=== PATIENT | male | born 1970 | race Caucasian/White ===

== ENCOUNTER → 2017-11-24 17:40 | Outpatient (CLI) | payer OTHER, SELFPAY ==
--- NOTE | 2017-11-24 | DI.RAD.S_ITS ---
PROCEDURE: XR KNEE RT 3V INDICATIONS: BILAT KNEE PAIN, LEFT FOR COMPARISON TECHNIQUE: 3 views of the knee were acquired. COMPARISON: [facility], CR, XR KNEE LT 3V, 11/24/2017, 17:25. FINDINGS: Bones: No fractures or dislocations. No suspicious bony lesions. ACL repair is noted. Soft tissues: Moderate joint effusion. No suspicious soft tissue calcifications. IMPRESSION: Moderate effusion. Prior ACL repair. Dictated by: Iris Irby M.D. on 11/25/2017 at 11:57 Approved by: Iris Irby M.D. on 11/25/2017 at 11:59
--- NOTE | 2017-11-24 | DI.RAD.S_ITS ---
PROCEDURE: XR KNEE LT 3V INDICATIONS: BILAT KNEE PAIN TECHNIQUE: 3 views of the knee were acquired. COMPARISON: None. FINDINGS: Bones: No fractures or dislocations. No suspicious bony lesions. Minimal early degenerative medial compartment narrowing. Soft tissues: Moderate joint effusion. No suspicious soft tissue calcifications. IMPRESSION: Moderate effusion. No visualized acute fracture or dislocation. However, if clinical concern and/or pain persist, short interval imaging followup in 7-10 days is recommended, as occult injury cannot be definitively excluded. Dictated by: Iris Irby M.D. on 11/25/2017 at 12:55 Approved by: Iris Irby M.D. on 11/25/2017 at 12:56
== END ==
PROVIDERS: Visit Provider Nurse Practitioner Family
DX: M25.561 Pain in right knee (principal); M25.562 Pain in left knee; M25.462 Effusion, left knee; M25.461 Effusion, right knee
CPT/HCPCS: 73562

== ENCOUNTER 2018-03-25 11:43 | Emergency (ER) | payer OTHER, SELFPAY ==
[2018-03-25] VITALS (10 sets, daily range): BP systolic 112–135; BP diastolic 81–95; PULSE 74–86; RESP 14–19; TEMP 37.2; O2SAT 96–100; BMI 29.5
--- NOTE | 2018-03-25 11:55 | ED_ITS ---
HPI - Neuro Symptoms/Deficit General Chief Complaint: Neuro Symptoms/Deficit Stated Complaint: cognitive impairment Time Seen by Provider: 03/25/18 11:50 Source: patient and family Mode of arrival: wheelchair Limitations: no limitations History of Present Illness HPI Narrative: 47-year-old male with a history of hypertension and hyperlipidemia presents for evaluation of gradually worsening vague neurologic complaints. Over the past week or 2 the patient has had the development of increased difficulty with ambulation which has progressed to almost a shuffling gait. Additionally the patient has increasing difficulty with speaking though he clearly understands what he wants to say it often is difficult for him to clearly express himself. He denies any injury nor illness such as fever or chills nor nausea, vomiting or diarrhea. He has no obvious seizure activity. He denies any excessive alcohol use, change in medications or exposure to toxins. He denies focal neurologic findings such as numbness, weakness or tingling. He has been under a tremendous amount of stress recently Onset (ago): week(s) Timing confirmed by: spouse Location: speech and ataxia History of same: No Severity: moderate Quality: weak Relieving factors: none Exacerbating factors: none Context: gradual onset Associated symptoms: confusion Related Data Home Medications Medication Instructions Recorded Confirmed amlodipine 10 mg PO QPM 03/25/18 03/25/18 atorvastatin 10 mg PO QPM 03/25/18 03/25/18 cholecalciferol (vitamin D3) 4,000 unit PO QPM 03/25/18 03/25/18 [Vitamin D3] fexofenadine [Radha Allergy] 180 mg PO QPM 03/25/18 03/25/18 fluticasone furoate 2 spray INTRANASAL DAILY 03/25/18 03/25/18 lisinopril 40 mg PO QPM 03/25/18 03/25/18 lorazepam 1 mg PO PRN PRN 03/25/18 03/25/18 montelukast [Singulair] 10 mg PO QPM PRN 03/25/18 03/25/18 Allergies Allergy/AdvReac Type Severity Reaction Status Date / Time No Known Drug Allergies Allergy Verified 03/25/18 11:59 Review of Systems Constitutional Denies chills, Denies fever(s), Denies lethargy and Reports weakness Eyes Denies change in vision, Denies eye discharge, Denies irritation and Denies loss of vision ENT Ears, Nose, Mouth, and Throat: Denies change in voice, Denies neck pain and Denies sore throat Cardiovascular Denies chest pain, Denies irregular heart rhythm, Denies lightheadedness, Denies palpitations, Denies dyspnea, Denies dyspnea on exertion and Denies orthopnea Respiratory Denies cough, Denies dyspnea, Denies dyspnea on exertion and Denies wheezing Gastrointestinal Gastrointestinal: Denies abdominal pain, Denies change in bowel habits, Denies diarrhea, Denies nausea and Denies vomiting Genitourinary Denies hematuria, Denies flank pain, Denies urinary incontinence and Denies urinary urgency Musculoskeletal Reports abnormal gait and Denies neck pain Integumentary/Breasts Denies pruritus, Denies erythema, Denies rash and Denies wounds Neurologic Reports abnormal speech, Reports abnormal gait, Reports confusion, Denies loss of vision and Reports weakness Psychiatric Reports anxiety, Reports confusion, Reports depression, Denies homicidal ideation and Denies suicidal ideation Endocrine Denies palpitations Hematologic/Lymphatic Denies easy bruising Allergic/Immunologic Denies wheezing Exam Narrative Exam Narrative: GENERAL: 47-year-old male in obvious distress, difficult time ambulating through the department and pressured speech. GCS 15 HEAD: Atraumatic. Normocephalic. No temporal or scalp tenderness. EYES: Pupils equal round and reactive. Extraocular motions intact. No scleral icterus. No injection or drainage. ENT: Nose without bleeding, purulent drainage or septal hematoma. Throat without erythema, tonsillar hypertrophy or exudate. Uvula midline. Airway patent. NECK: Trachea midline. No JVD or lymphadenopathy. Supple, nontender, no meningeal signs. CARDIOVASCULAR: Regular rate and rhythm without murmurs, gallops, or rubs. RESPIRATORY: Clear to auscultation. Breath sounds equal bilaterally. No wheezes , rales, or rhonchi. GASTROINTESTINAL: Abdomen soft, non-tender, nondistended. No hepato-splenomegaly , or palpable masses. No guarding. EXTREMITIES: No clubbing, cyanosis, or edema. No joint tenderness, effusion, or edema noted. BACK: Nontender without deformity or crepitance. No flank tenderness. NEURO: AOx3.Speech is pressured SKIN: No rash or erythema. NIH Stroke Scale 1a. LOC: Patient is alert and keenly responsive (0) 1b. LOC Questions: Patient answers both LOC questions accurately (0) 1c. LOC Commands: Patient performs both tasks correctly (0) 2. Best Gaze: Normal (0) 3. Visual: No visual loss (0) 4. Facial palsy: Normal symmetrical movements (0) 5. Motor arm: No drift (0) 6. Motor leg: No drift (0) 7. Limb ataxia: Absent (0) 8. Sensory: Normal (0) 9. Best language: No aphasia; normal (0) 10. Dysarthria: Normal (0) 11. Extinction and inattention: No abnormality (0) NIHSS: 0 Initial Vital Signs Initial Vital Signs: Vital Signs Temperature 99.0 F 03/25/18 11:59 Pulse Rate 77 03/25/18 11:59 Respiratory Rate 15 03/25/18 11:59 Blood Pressure 135/95 H 03/25/18 11:59 Pulse Oximetry 96 03/25/18 11:59 Procedures Lumbar Puncture Time Out Performed: Yes Patient Position: upright Skin Prep: Povidone-Iodine 1% Local Anesthetic: lidocaine 1% Amount of anesthesia used (mL): 4 Spinal Needle Gauge: 22G Interspace Used: L4-L5 Fluid Initially Obtained: clear Complications: none Course Orders Ordered: ED Orders 03/25/18 11:50 EKG-12 Lead Stat 03/25/18 11:57 CT head/brain wo con Stat 03/25/18 14:25 CSF culture Stat Cell Count w Diff CSF Stat Glucose CSF Stat Meningitis Panel Stat Total Protein CSF Stat 03/25/18 14:35 Cell Count w Diff CSF Routine Discontinued Medications Sodium Chloride (Normal Saline 0.9%) 1,000 mls @ 150 mls/hr IV CONT ORTEGA Last Admin: 03/25/18 12:35 Dose: 150 mls/hr Thiamine HCl 100 mg/ Dextrose 51 mls @ 204 mls/hr IV NOW ONE Stop: 03/25/18 11:51 Last Infusion: 03/25/18 12:55 Dose: 0 mls/hr Admin: 03/25/18 12:35 Dose: 204 mls/hr Lorazepam (Ativan) 1 mg IV NOW ONE Stop: 03/25/18 12:51 Last Admin: 03/25/18 12:54 Dose: 1 mg Reevaluation(s) Reevaluation #1: Patient administered Ativan to calm his nerves prior to lumbar puncture and he feels much better after administration. His speech is more clear Consultations Consultation #1: Discussion with [place] [facility] neurology upon completion of workup to discuss possible etiologies and recommended neck steps. They are happy with our emergency department evaluation and make no emergent recommendations. They state he can safely be discharged and an outpatient neurology referral seems reasonable, and would likely include MRI and EEG. There is some question as to whether the patient's presentation is due to a partial seizure pattern given the impressive improvement after Ativan Consultation #2: Called to PCP to relay the findings of the case and encourage neurologic referral. She is thankful for the call and states she will begin working on referral today or tomorrow Vital Signs - 8 hr 03/25/18 12:30 03/25/18 13:00 03/25/18 13:30 Pulse Rate 82 74 80 Respiratory Rate 16 15 Blood Pressure [Left Arm] 128/86 117/86 119/88 Pulse Oximetry 100 98 97 03/25/18 14:00 03/25/18 14:30 03/25/18 15:00 Pulse Rate 86 76 77 Respiratory Rate 19 14 15 Blood Pressure [Left Arm] 126/83 121/83 112/81 Pulse Oximetry 100 97 96 03/25/18 15:30 03/25/18 16:00 03/25/18 16:30 Pulse Rate 76 83 78 Respiratory Rate 17 18 16 Blood Pressure [Left Arm] 118/83 118/83 125/85 Pulse Oximetry 98 96 97 MDM - Neuro Symptoms/Deficit Differential Diagnosis Likely delirium, subarachnoid hemorrhage, peripheral neuropathy, cerebrovascular accident and transient cerebral ischemia Medical Records Attestation: I reviewed the patient's medical records. Lab Data Attestation: I reviewed the patient's lab results. Result diagrams: 03/25/18 11:15 03/25/18 11:15 Lab Results 03/25/18 03/25/18 03/25/18 Range/Units 11:15 11:15 11:15 WBC 6.2 (4.5-11.0) X10^3/uL RBC 5.05 (4.5-5.9) X10^6/uL Hgb 14.5 (13.5-17.5) g/dL Hct 42.9 (41-53) % MCV 85.1 (80-100) fL MCH 28.7 (26-34) PG MCHC 33.8 (30-36) % RDW 12.8 (11.6-14.8) % Plt Count 215 (150-400) X10^3/uL Neut % (Auto) 60.7 (50-75) % Lymph % (Auto) 31.6 (25-40) % [place] % (Auto) 5.5 (3-14) % Eos % (Auto) 0.8 L (2-4) % Baso % (Auto) 1.4 (0-2) % Neut # (Auto) 3700 (8079-8536) /uL Lymph # (Auto) 1900 (5054-1386) /uL [place] # (Auto) 300 (0-900) /uL Eos # (Auto) 100 (0-450) /uL Baso # (Auto) 100 (0-100) /uL PT 12.6 (10.1-12.7) SECONDS INR 1.1 (0.9-1.3) APTT 35 (26.4-36.2) SECONDS Sodium 144 (137-145) mmol/L Potassium 4.1 (3.4-5.1) mmol/L Chloride 103 (98-107) mmol/L Carbon Dioxide 27 (22-32) mmol/L BUN 16 (9-20) mg/dL Creatinine 0.70 (0.66-1.25) mg/dL Estimated GFR > 60.0 (>60) mL/min BUN/Creatinine Ratio 22.9 H (6-22) Glucose 112 H (70-100) mg/dL Calcium 9.8 (8.4-10.2) mg/dL Total Bilirubin 0.7 (0.2-1.3) mg/dL AST 34 (17-59) IU/L ALT 45 (21-72) IU/L Alkaline Phosphatase 67 (38-126) U/L Ammonia (9-30) umol/L Troponin I < 0.012 (0.01-0.034) ng/mL Total Protein 8.4 H (6.3-8.2) g/dL Albumin 5.4 H (3.5-5.0) g/dL Globulin 3.0 (1.7-4.1) g/dL Albumin/Globulin Ratio 1.8 (1.0-2.8) CSF Tube Number CSF Volume CSF Appearance (Clear) CSF Color (Colorless) CSF WBC (0-5) MONO/uL CSF RBC RBC /uL CSF Mononuclear WBCs CSF Polynuclear WBCs CSF Glucose (40-70) mg/dL CSF Total Protein (12-60) mg/dL CSF C.neoform/gat PCR (Not Detect) CSF CMV DNA (PCR) (Not Detect) CSF Enterovirus (PCR) (Not Detect) CSF E. coli (PCR) (Not Detect) CSF H. influenzae (PCR) (Not Detect) CSF HSV I (PCR) (Not Detect) CSF HSV II (PCR) (Not Detect) CSF HHV 6 (PCR) (Not Detect) CSF L.monocytogenes PCR (Not Detect) CSF N. meningitidis PCR (Not Detect) CSF Parechovirus (PCR) (Not Detect) CSF S. agalactiae (PCR) (Not Detect) CSF S. pneumoniae (PCR) (Not Detect) CSF VZV (PCR) Ethyl Alcohol < 10 mg/dL 03/25/18 03/25/18 03/25/18 Range/Units 11:15 14:25 14:25 WBC (4.5-11.0) X10^3/uL RBC (4.5-5.9) X10^6/uL Hgb (13.5-17.5) g/dL Hct (41-53) % MCV (80-100) fL MCH (26-34) PG MCHC (30-36) % RDW (11.6-14.8) % Plt Count (150-400) X10^3/uL Neut % (Auto) (50-75) % Lymph % (Auto) (25-40) % [place] % (Auto) (3-14) % Eos % (Auto) (2-4) % Baso % (Auto) (0-2) % Neut # (Auto) (8006-6979) /uL Lymph # (Auto) (8722-2498) /uL [place] # (Auto) (0-900) /uL Eos # (Auto) (0-450) /uL Baso # (Auto) (0-100) /uL PT (10.1-12.7) SECONDS INR (0.9-1.3) APTT (26.4-36.2) SECONDS Sodium (137-145) mmol/L Potassium (3.4-5.1) mmol/L Chloride (98-107) mmol/L Carbon Dioxide (22-32) mmol/L BUN (9-20) mg/dL Creatinine (0.66-1.25) mg/dL Estimated GFR (>60) mL/min BUN/Creatinine Ratio (6-22) Glucose (70-100) mg/dL Calcium (8.4-10.2) mg/dL Total Bilirubin (0.2-1.3) mg/dL AST (17-59) IU/L ALT (21-72) IU/L Alkaline Phosphatase (38-126) U/L Ammonia 17.0 (9-30) umol/L Troponin I (0.01-0.034) ng/mL Total Protein (6.3-8.2) g/dL Albumin (3.5-5.0) g/dL Globulin (1.7-4.1) g/dL Albumin/Globulin Ratio (1.0-2.8) CSF Tube Number 2 CSF Volume 1.0 ml CSF Appearance Clear (Clear) CSF Color Colorless (Colorless) CSF WBC 0 (0-5) MONO/uL CSF RBC 0 RBC /uL CSF Mononuclear WBCs TNP CSF Polynuclear WBCs TNP CSF Glucose 65 (40-70) mg/dL CSF Total Protein 63 H (12-60) mg/dL CSF C.neoform/gat PCR Not detected (Not Detect) CSF CMV DNA (PCR) Not detected (Not Detect) CSF Enterovirus (PCR) Not detected (Not Detect) CSF E. coli (PCR) Not detected (Not Detect) CSF H. influenzae (PCR) Not detected (Not Detect) CSF HSV I (PCR) Not detected (Not Detect) CSF HSV II (PCR) Not detected (Not Detect) CSF HHV 6 (PCR) Not detected (Not Detect) CSF L.monocytogenes PCR Not detected (Not Detect) CSF N. meningitidis PCR Not detected (Not Detect) CSF Parechovirus (PCR) Not detected (Not Detect) CSF S. agalactiae (PCR) Not detected (Not Detect) CSF S. pneumoniae (PCR) Not detected (Not Detect) CSF VZV (PCR) Not detected Ethyl Alcohol mg/dL 03/25/18 Range/Units 14:35 WBC (4.5-11.0) X10^3/uL RBC (4.5-5.9) X10^6/uL Hgb (13.5-17.5) g/dL Hct (41-53) % MCV (80-100) fL MCH (26-34) PG MCHC (30-36) % RDW (11.6-14.8) % Plt Count (150-400) X10^3/uL Neut % (Auto) (50-75) % Lymph % (Auto) (25-40) % [place] % (Auto) (3-14) % Eos % (Auto) (2-4) % Baso % (Auto) (0-2) % Neut # (Auto) (1183-9125) /uL Lymph # (Auto) (5288-9336) /uL [place] # (Auto) (0-900) /uL Eos # (Auto) (0-450) /uL Baso # (Auto) (0-100) /uL PT (10.1-12.7) SECONDS INR (0.9-1.3) APTT (26.4-36.2) SECONDS Sodium (137-145) mmol/L Potassium (3.4-5.1) mmol/L Chloride (98-107) mmol/L Carbon Dioxide (22-32) mmol/L BUN (9-20) mg/dL Creatinine (0.66-1.25) mg/dL Estimated GFR (>60) mL/min BUN/Creatinine Ratio (6-22) Glucose (70-100) mg/dL Calcium (8.4-10.2) mg/dL Total Bilirubin (0.2-1.3) mg/dL AST (17-59) IU/L ALT (21-72) IU/L Alkaline Phosphatase (38-126) U/L Ammonia (9-30) umol/L Troponin I (0.01-0.034) ng/mL Total Protein (6.3-8.2) g/dL Albumin (3.5-5.0) g/dL Globulin (1.7-4.1) g/dL Albumin/Globulin Ratio (1.0-2.8) CSF Tube Number 4 CSF Volume 1.0 ml CSF Appearance Clear (Clear) CSF Color Colorless (Colorless) CSF WBC 0 (0-5) MONO/uL CSF RBC 2 RBC /uL CSF Mononuclear WBCs TNP CSF Polynuclear WBCs TNP CSF Glucose (40-70) mg/dL CSF Total Protein (12-60) mg/dL CSF C.neoform/gat PCR (Not Detect) CSF CMV DNA (PCR) (Not Detect) CSF Enterovirus (PCR) (Not Detect) CSF E. coli (PCR) (Not Detect) CSF H. influenzae (PCR) (Not Detect) CSF HSV I (PCR) (Not Detect) CSF HSV II (PCR) (Not Detect) CSF HHV 6 (PCR) (Not Detect) CSF L.monocytogenes PCR (Not Detect) CSF N. meningitidis PCR (Not Detect) CSF Parechovirus (PCR) (Not Detect) CSF S. agalactiae (PCR) (Not Detect) CSF S. pneumoniae (PCR) (Not Detect) CSF VZV (PCR) Ethyl Alcohol mg/dL Point of Care Testing Glucose POC 113 Urine Dip Bedside Urine Glucose Negative Bedside Urine Bilirubin - Negative Bedside Urine Ketone - Negative Urine Specific [place] 1.005 Bedside Urine Occult Blood - Negative Bedside Urine pH 8.0 Bedside Urine Protein - Negative Bedside Urine Urobilinogen - Negative Bedside Urine Nitrite - Negative Bedside Urine Leukocytes - Negative Esterase MDM Narrative Medical decision making narrative: Multiple etiologies for patient's symptoms considered including: [Multiple etiologies including atypical seizure pattern, toxic or metabolic encephalopathy, encephalitis, or neck he has or Korsakoff's, psychiatric break or other neuropsych etiology] Patient's symptoms improved or duration of stay with above-stated therapies. Findings and discharge diagnosis discussed with patient/family followed by verbalization of understanding Return precautions discussed with patient/family whom verbalize understanding. Critical Care Time Critical Care Time: Yes Total Critical Care Time: 45 Attestation: The high probability of a clinically significant, sudden or life threatening deterioration of the [neurologic] system(s) required my full and direct attention, intervention and personal management. The aggregate critical care time was [] minutes. This time is in addition to time spent performing reported procedures but includes the following: [x] Data Review and interpretation [x] Patient assessment and monitoring of vital signs [x] Documentation [x] Medication orders and management Discharge Plan Departure Patient Disposition: Home Clinical Impression: Ataxia Discharge Date/Time: 03/25/18 16:52 Interventions: ED Discharge Assessment Last Done: 03/25/18 16:50 Instructions: DI for Stuttering-Adult Activity Restrictions/Additional Instructions: *You have been diagnosed with [ ataxia, stuttering, possible partial seizure activity ] *What to do: *continue to take medications as directed *Follow up with your primary care provider in 2-3 days, call for an appointment. Let them know you were seen in the Emergency Department and that we ask that you be seen in follow up. We need to get you a referral to Neurology for workup for possible seizure activity *Return to ER if you should have any new, worsening or concerning symptoms Prescriptions: No Action atorvastatin 10 mg Tablet 10 mg PO QPM RF: 0 fexofenadine [Radha Allergy] 180 mg Tablet 180 mg PO QPM RF: 0 amlodipine 10 mg Tablet 10 mg PO QPM RF: 0 montelukast [Singulair] 10 mg Tablet 10 mg PO QPM PRN (Reason: Allergy Symptoms) RF: 0 lorazepam 1 mg Tablet 1 mg PO PRN PRN (Reason: Anxiety) RF: 0 lisinopril 40 mg Tablet 40 mg PO QPM RF: 0 fluticasone furoate 27.5 mcg/actuation [place],Suspension 2 spray INTRANASAL DAILY RF: 0 cholecalciferol (vitamin D3) [Vitamin D3] 2,000 unit Tablet 4,000 unit PO QPM RF: 0 Referrals: Teresita Castellano ARNP [Non-Staff] -
--- NOTE | 2018-03-25 11:57 | DI.CT.S_ITS ---
PROCEDURE: CT HEAD/BRAIN WO CON INDICATIONS: ataxia, trouble with speech TECHNIQUE: Noncontrast 4.5 mm thick angled axial sections acquired from the foramen magnum to the vertex, with coronal and sagittal reformats. For radiation dose reduction, the following was used: automated exposure control, adjustment of mA and/or kV according to patient size. COMPARISON: None. FINDINGS: Image quality: Excellent. CSF spaces: Basal cisterns are patent. No extra-axial fluid collections. Ventricles are normal in size and shape. Brain: No midline shift. No intracranial masses or hemorrhage. Zhu-white matter interface is normal. Skull and face: Calvarium and visualized facial bones are intact, without suspicious lesions. Sinuses: Visualized sinuses and mastoids are clear. IMPRESSION: Unremarkable head CT. No acute intracranial hemorrhage. Dictated by: Micah Dowling M.D. on 03/25/2018 at 11:10 Approved by: Micah Dowling M.D. on 03/25/2018 at 11:12
[2018-03-25 12:12] LABS: Add Manual Diff / Slide Review NO; Basophils Absolute Auto 100 /uL (0-100); Basophils Percent Auto 1.4 % (0-2); Eosinophils Absolute Auto 100 /uL (0-450); Eosinophils Percent Auto 0.8 % (2-4); Hematocrit 42.9 % (41-53); Hemoglobin 14.5 g/dL (13.5-17.5); Lymphocytes Absolute Auto 1900 /uL (1100-4500); Lymphocytes Percent Auto 31.6 % (25-40); Mean Corpuscular HGB Conc 33.8 % (30-36); Mean Corpuscular Hemoglobin 28.7 PG (26-34); Mean Corpuscular Volume 85.1 fL (80-100); Monocytes Absolute Auto 300 /uL (0-900); Monocytes Percent Auto 5.5 % (3-14); Neutrophils Absolute Auto 3700 /uL (1500-7000); Neutrophils Percent Auto 60.7 % (50-75); Platelet Count 215 X10^3/uL (150-400); Red Blood Cell Count 5.05 X10^6/uL (4.5-5.9); Red Cell Distribution Width 12.8 % (11.6-14.8); White Blood Cell Count 6.2 X10^3/uL (4.5-11.0)
[2018-03-25 12:19] LABS: INR 1.1 (0.9-1.3); Prothrombin Time 12.6 SECONDS (10.1-12.7)
[2018-03-25 12:21] LABS: PTT Partial Thromboplastin Tim 35 SECONDS (26.4-36.2)
[2018-03-25 12:23] LABS: Alanine Aminotransferase 45 IU/L (21-72); Albumin 5.4 g/dL (3.5-5.0); Albumin Globulin Ratio 1.8 (1.0-2.8); Alkaline Phosphatase 67 U/L (38-126); Aspartate Aminotransferase 34 IU/L (17-59); BUN Creatinine Ratio 22.9 (6-22); Bilirubin Total 0.7 mg/dL (0.2-1.3); Blood Urea Nitrogen 16 mg/dL (9-20); Calcium 9.8 mg/dL (8.4-10.2); Carbon Dioxide 27 mmol/L (22-32); Chloride 103 mmol/L (98-107); Estimated Glomerular Filt Rate > 60.0 mL/min (>60); Ethanol (ETOH) < 10 mg/dL; Glucose 112 mg/dL (70-100); HEMOLYSIS < 15 (0-50); Potassium 4.1 mmol/L (3.4-5.1); Sodium 144 mmol/L (137-145); Total Protein 8.4 g/dL (6.3-8.2)
[2018-03-25 12:35] LABS: Troponin I < 0.012 ng/mL (0.01-0.034)
[2018-03-25] MEDS: THIAMINE 100 MG in DEXTROSE 5 % IN WATER 50 ML 204 ML IV (12:35)
[2018-03-25] MEDS: SODIUM CHLORIDE 0.9% 1,000 ML 150 ML IV (12:35)
[2018-03-25] MEDS: LORazepam 2 MG/ML SYRINGE 1 MG IV (12:54)
[2018-03-25 14:43] LABS: Glucose CSF 65 mg/dL (40-70); Total Protein CSF 63 mg/dL (12-60)
[2018-03-25 14:51] LABS: CSF Tube Number 2; CSF Tube Volume 1.0 mL
[2018-03-25 14:52] LABS: Appearance CSF Clear (Clear); Color CSF Colorless (Colorless); Red Blood Cell CSF 0 RBC /uL; White Blood Cell CSF 0 MONO/uL (0-5)
[2018-03-25 14:52] LABS: CSF Tube Number 4
[2018-03-25 14:53] LABS: Appearance CSF Clear (Clear); CSF Tube Volume 1.0 mL; Color CSF Colorless (Colorless); Red Blood Cell CSF 2 RBC /uL; White Blood Cell CSF 0 MONO/uL (0-5)
--- NOTE | 2018-03-25 15:02 | PC.NURSE ---
Pt with increased tearful, unable to express himself upon arrival. Spouse asking if there was someone who could talk with pt and help calm him down. ok with calling insurance office manager to come talk to patient. Asked patient if he would like something for anxiety as well, pt shook his head accepting. Called Audie and audie agreed to come visit patient. Medicated with ativan at 1255. Shortly after, pt started to stare off and began to have shallow breathing. Oxygen sats decreased to 83% on RA. Was able to increase to 97% on RA with deep breathing after encouragement but would quickly drop down again. Placed O2 at 2L and spo2 increased to 100%. Pt appeared to calm down with the ativan and close his eyes.
[2018-03-25 16:00] LABS: Cryptococcus neoformans/gattii Not Detected (Not Detect); Enterovirus Not Detected (Not Detect); Escherichia coli K1 Not Detected (Not Detect); Haemophilus influenzae Not Detected (Not Detect); Herpes simplex virus 1 Not Detected (Not Detect); Herpes simplex virus 2 Not Detected (Not Detect); Human herpesvirus 6 Not Detected (Not Detect); Human parechovirus Not Detected (Not Detect); Listeria monocytogenes Not Detected (Not Detect); Neisseria meningitidis Not Detected (Not Detect); Streptococcus agalactiae Not Detected (Not Detect); Streptococcus pneumoniae Not Detected (Not Detect); Varicella Zoster Virus Not Detected
--- NOTE | 2018-03-25 16:47 | PC.NURSE ---
Pt reports being able to speak without difficulty. Ambulated around nurses station. Denied any leg weakness at the time.
== END 2018-03-25 16:52 | disposition home or self-care (01) ==
PROVIDERS: Emergency Provider Emergency Medicine
DX: R27.0 Ataxia, unspecified (principal)
CPT/HCPCS: 36591; 62270; 70450; 80053; 80320; 81003; 82140; 82945; 82962; 84157; 84484; 85025; 85610; 85730; 87070; 87205; 87798; 89051; 93005; 93010; 96361; 96374; 96375; 99285; 99291; J2060

== ENCOUNTER → 2018-11-06 10:22 | Outpatient (CLI) | payer OTHER, SELFPAY ==
--- NOTE | 2018-11-06 | DI.MRI.S_ITS ---
PROCEDURE: MR CERVICAL SPINE WO CON INDICATIONS: CARPAL TUNNEL,DDD OF C SPINE TECHNIQUE: Noncontrast sagittal T1 spin echo and T2 fast spin echo, sagittal STIR, foraminal oblique sagittal T2 fast spin echo, and axial gradient echo or T2 fast spin echo through the cervical spine. COMPARISON: None. FINDINGS: Image quality: Excellent. Alignment and Curvature: There is normal bony alignment. Bone Marrow: Marrow demonstrates normal overall signal. Spinal Cord: Visualized spinal cord has normal size and signal. No cerebellar tonsillar herniation. Paraspinous Soft Tissues: No paravertebral masses. Prevertebral soft tissues are normal in thickness. C2-C3: No canal stenosis. Mild right uncovertebral joint hypertrophy. Mild right foraminal narrowing. C3-C4: No canal stenosis. Mild bilateral facet hypertrophy. Mild bilateral foraminal narrowing. C4-C5: No canal stenosis. Left facet hypertrophy. Moderate left foraminal narrowing. C5-C6: No canal stenosis. Bilateral uncovertebral joint hypertrophy results in severe right foraminal narrowing and moderate left foraminal narrowing with indentation on the bilateral C6 nerve root sleeves in the foramina. C6-C7: A moderate broad-based left posterior disc protrusion narrows the left hemicord, indenting on the left hemicord and results in severe left foraminal narrowing. It impinges on the lateral recess and foramen, impinging on the left C7 nerve root. It measures 0.8 x 1.5 x 0.5 cm. C7-T1: Normal appearance. IMPRESSION: 1. At C6-C7, a moderate broad based left posterior disc protrusion indents on the left hemicord, impinging on the left penny-canal and left lateral recess and left foramen 2. At C5-C6, there is severe right foraminal narrowing and moderate left foraminal narrowing. 3. At C4-C5, there is moderate left foraminal narrowing. Dictated by: Anton Hogue M.D. on 11/09/2018 at 10:43 Approved by: Anton Hogue M.D. on 11/09/2018 at 10:55
== END ==
PROVIDERS: Visit Provider Family Medicine
DX: G56.00 Carpal tunnel syndrome, unspecified upper limb (principal); M50.223 Other cervical disc displacement at C6-C7 level; M48.02 Spinal stenosis, cervical region
CPT/HCPCS: 72141

== ENCOUNTER → 2019-05-11 12:02 | Outpatient (CLI) | payer OTHER, SELFPAY ==
[2019-05-11 13:06] LABS: Add Manual Diff / Slide Review NO; Basophils Absolute Auto 100 /uL (0-100); Basophils Percent Auto 1.4 % (0-2); Eosinophils Absolute Auto 100 /uL (0-450); Eosinophils Percent Auto 1.8 % (2-4); Hematocrit 41.7 % (41-53); Hemoglobin 14.4 g/dL (13.5-17.5); Lymphocytes Absolute Auto 2200 /uL (1100-4500); Mean Corpuscular HGB Conc 34.7 % (30-36); Mean Corpuscular Hemoglobin 29.3 PG (26-34); Mean Corpuscular Volume 84.6 fL (80-100); Monocytes Absolute Auto 300 /uL (0-900); Monocytes Percent Auto 5.3 % (3-14); Neutrophils Absolute Auto 3500 /uL (1500-7000); Neutrophils Percent Auto 56.5 % (50-75); Platelet Count 219 X10^3/uL (150-400); Red Blood Cell Count 4.92 X10^6/uL (4.5-5.9); Red Cell Distribution Width 13.3 % (11.6-14.8); White Blood Cell Count 6.2 X10^3/uL (4.5-11.0)
[2019-05-11 13:38] LABS: BUN Creatinine Ratio 15.7 (6-22); Blood Urea Nitrogen 11 mg/dL (9-20); Carbon Dioxide 28 mmol/L (22-32); Chloride 102 mmol/L (98-107); Estimated Glomerular Filt Rate > 60.0 mL/min (>60); Glucose 95 mg/dL (70-100); HEMOLYSIS < 15 (0-50); Potassium 4.2 mmol/L (3.4-5.1); Sodium 143 mmol/L (137-145)
== END ==
PROVIDERS: PCP Family Medicine; Referring Provider Orthopaedic Surgery Orthopaedic Surgery of the Spine; Visit Provider Orthopaedic Surgery Orthopaedic Surgery of the Spine
DX: Z01.812 Encounter for preprocedural laboratory examination (principal)
CPT/HCPCS: 36415; 80048; 85025

== ENCOUNTER 2019-05-25 07:15 | Day surgery (SDC) | payer OTHER, SELFPAY ==
[2019-05-19 13:00] VITALS: BMI 31.0
[2019-05-25] VITALS (21 sets, daily range): BP systolic 99–117; BP diastolic 52–76; PULSE 64–101; RESP 8–24; TEMP 36.2–36.9; O2SAT 91–98; BMI 31.0
--- NOTE | 2019-05-25 | DI.RAD.S_ITS ---
PROCEDURE: XR CERVICAL SPINE 2V OR 3V INDICATIONS: C5-6, C6-7 ACDF TECHNIQUE: 3 operative view(s) of the cervical spine were acquired. COMPARISON: None. FINDINGS: Preoperative images, including AP and lateral views, demonstrate ACDF at C5-C7 using anterior plate and screw fixation and interbody disc material. IMPRESSION: Operative imaging utilized during C5-C7 ACDF. Dictated by: Anton Hogue M.D. on 05/25/2019 at 11:53 Approved by: Anton Hogue M.D. on 05/25/2019 at 12:02
[2019-05-25] MEDS: LACTATED RINGERS 1,000 ML 42 ML IV (08:39)
--- NOTE | 2019-05-25 08:49 | PM.PREOP ---
Pre-operative Note Interval Note History & Physical reviewed/Exam performed by Physician: Yes Changes to H&P: No
[2019-05-25] MEDS: CEFAZOLIN 2 GM/100 ML FROZ.PIGGY IV ×2 (09:03→17:18)
--- NOTE | 2019-05-25 09:38 | SUR.OPER ---
Supine, head on gel donut. Arms padded with gel pads, tucked at sides, towel roll under shoulders. Safety belt at thigh. Legs uncrossed.
[2019-05-25] MEDS: BUPIVACAINE 0.25% W/ EPI 30 ML VIAL INJ (09:43)
--- NOTE | 2019-05-25 11:30 | PM.OP.1 ---
Operative Date/Time/Diagnoses Date of procedure: 05/25/19 Time of procedure: 08:53 Pre-op diagnosis: 1. C5-6, C6-7 spinal stenosis 2. C5-6, C6-7 spondylosis with radiculopathy Post-op diagnosis: same Procedure & Clinicians Procedure: 1. C5-6 C6-7 anterior cervical diskectomy and fusion 2. C5-6 C6-7 anterior interbody cage placement 3. C5-6 C6-7 anterior instrumentation with plate and screw placement in C5-C6 and C7 vertebrae 4. Utilization of microsurgical technique and operating microscope Same procedure as scheduled: Yes Indications: Patient has been having chronic neck pain and worsening cervical radiculopathy. Patient failed multiple conservative management with worsening pain weakness and numbness in her upper extremity. Patient has been having difficulty performing activity of daily living. After discussing risks benefits of treatment options, patient elected proceed with surgery. Surgeon: Franco Baez Chemical Cell Changer: Nazia Vega Click Yes if Unassisted: No Anesthesia Type: General Operative Notes Closure Type: primary Specimen(s): none sent Prosthetic devices, grafts, tissues, transplants, or devices: Globus extend plate, PEEK cages Applied: catheter Estimated Blood Loss (mL): 10 Blood products transfused: none Procedure in detail: Patient was seen in the preoperative area. Risks and benefits of the surgery was discussed with the patient. Operative consent was obtained and placed in the chart. Patient was then taken to the operative room. Prophylactic antibiotic was given less than 0.5 hr prior to skin incision. General anesthesia was administered. Patient was placed into a supine position on her radiolucent table. Bilateral shoulders were taped down to allow proper C-arm imaging. Anterior cervical area was prepped and draped in a sterile fashion. Time-out was performed at this time. Using lateral C-arm imaging, the level between C5 and C7 was identified and marked on patient's neck. A oblique incision from midline towards medial border of sternocleidomastoid muscle was made. The platysma muscle was incised in line with skin incision. Metzenbaum scissor was used to develop the plane between the medial border of sternocleidomastoid d and the strap muscles medially. The carotid sheath and its contents were identified and protected behind the hand-held retractor during the entire case. The plane between the carotid sheath and strap muscles was developed with Metzenbaum scissors. Dissection was made down to the level of the anterior cervical fascia. Longus colli muscle was incised on the anterior aspect of vertebral bodies bilaterally from C5-C7. Spinal needle was placed into the C5-6 disc space and confirmed with lateral C-arm imaging. Using microsurgical technique and operative microscope, anterior cervical diskectomy was performed at C5-6 and C6-7 level. This was done by removing the disc material, removing the anterior and posterior osteophytes posterior longitudinal ligaments along with performing bilateral foraminotomies at both levels. Patient was found to have severe central and foraminal stenosis at both levels. Patient's stenosis was fully decompressed after decompression was completed. After the diskectomy was completed, 2 anterior interbody cages were obtained. The cages were packed with globus via cell bone grafting material. One cage each along with the bone grafting material was then packed into the interbody spaces from C5-C7 with one cage into each interbody level. After the cages were placed, the anterior cervical plate was stabilized to the C5-C7 vertebrae using 2 screws at each each level. Total 6 screws were placed. After confirming placement of the hardware with AP and lateral C-arm imaging, the screws were locked into the plate using the locking mechanism and torque limiting screwdriver. After the hardware was placed and confirmed with AP and lateral C-arm imaging, the wound was irrigated with sterile normal saline. The platysma muscle and the subcutaneous tissue was closed with 2-0 Vicryl. The skin was closed with 4-0 Monocryl and Steri-Strips. Patient tolerated the procedure well. Patient was transferred recovery room in stable condition. There were no complications. Complications: none Post-operative Condition: stable Disposition: PACU Plan for aftercare: Admit to inpatient hospital
[2019-05-25] MEDS: LACTATED RINGERS 1,000 ML 120 ML IV (11:47)
[2019-05-25] MEDS: HYDROMORPHONE 2 MG INJ IV ×4 (11:54→12:31)
--- NOTE | 2019-05-25 12:01 | SUR.PHASEI ---
Rx given for c/o neck pain, IV flushed for patency, flows well.
--- NOTE | 2019-05-25 12:04 | SUR.PHASEI ---
States that pain level is unchanged; medicated
[2019-05-25] MEDS: fentaNYL 100 MCG/2 ML INJ IV ×2 (12:10→12:15)
[2019-05-25] MEDS: hydrOXYzine 50 MG/ML INJ 25 MG IM (12:17)
[2019-05-25] MEDS: LORazepam 2 MG/ML INJ 0.25 MG IV (12:28)
[2019-05-25] MEDS: LORazepam 2 MG/ML INJ (12:29)
[2019-05-25] MEDS: ACETAMINOPHEN 325 MG TABLET PO (12:42)
[2019-05-25] MEDS: OXYCODONE IR 5 MG TABLET PO (12:43)
--- NOTE | 2019-05-25 12:44 | SUR.PHASEI ---
became anxious, rx given per Dr. Niño. Patient now calm, HR lower, resting quietly with eyes closed
--- NOTE | 2019-05-25 13:10 | SUR.PHASEI ---
Sats range from 88% - 96%, arouses easily to voice, sats recover quickly. Neck drainage (pale shadow) has not increased from marking over 1/2 hour ago. Dozing, told him that his had called, response to conversation. Resp unlabored.
--- NOTE | 2019-05-25 13:43 | SUR.PHASEI ---
[id number] to room 205, bed down and locked, call light within reach. Clothing/bag to room. Pt dozing, responds readily to voice. When asked how he is doing, he shook his head yes, No non-verbal indicators of pain. VALARIE Kumar is covering lunch break for receiving RN, voice concern over resp rate 9-10. Coordinator present, agreed that patient was maintaining O2 sat and adequate resp rate. Encouraged them to leave patient on Continuous pulse-ox, RED HAT LINUX ENGINEER was available and offered to sit with the patient. VALARIE Kumar found this acceptable SCDs on. O2 at 3LNP. Skin warm and dry, resp even and regular. VSS.
--- NOTE | 2019-05-25 13:49 | SUR.PHASEI ---
1325 Maintaining sat and resp rate without prompting. Prepared to transfer. Pain well controlled without grimace or vocalization.
[2019-05-25] MEDS: SODIUM CHLORIDE 0.9% 1,000 ML 100 ML IV ×2 (14:21→23:23)
[2019-05-25] MEDS: GABAPENTIN 300 MG CAPSULE PO ×2 (14:44→20:11)
--- NOTE | 2019-05-25 14:50 | PC.NURSE ---
Received patient from the PACU, patient A/Ox3, drowsy, rr 8-10. Patient responsive. NS infusing at 100cc/hr. Admit completed. Patient given water, ice and IS. Call light in reach. PT in to see patient at this time.
--- NOTE | 2019-05-25 14:57 | PT-IP ANOTE ---
Pt arrived AC unit at 1335. PT order received. Attempted to eval PT at 1445pm and pt resting in bed who is AxO 4 but appeared to be very sleepy. Obtained social history but defer mobility assessment later this pm / tomorrow morning.
[2019-05-25] MEDS: ATORVASTATIN 10 MG TABLET PO (17:18)
--- NOTE | 2019-05-25 18:02 | PT.IIE ---
Current Diagnoses Other spondylosis with radiculopathy, cervical region (05/25/19) Spinal stenosis, cervical region (05/25/19) Surgery Performed Operation Date: 05/25/19 08:45 Actual Procedures p C5-6, C6-7 ACDF w/ anterior instrumentation(Not Applicable) - Franco Baez MD Surgical History (This Medical Record has been edited. Action required.) History of carpal tunnel release of both wrists (Acute) History of lumbar fusion (Acute 2014) History of vasectomy (Acute) Hx of appendectomy (Acute 1989) Hx of arthroscopy of right knee (Acute) Hx of repair of left rotator cuff (Acute 2005) Status post Mohs surgery (Acute) Medical History (This Medical Record has been edited. Action required.) Anxiety (Acute) Arthritis (Acute) Asthma (Acute) Depression (Acute) Hand fracture, right (Acute 1989) HLD (hyperlipidemia) (Acute) HTN (hypertension) (Acute) Numbness and tingling (Acute) Seasonal allergies (Acute) Physical Therapy Inpatient Evaluation/Re-Eval M1 PT/OT-IP Prior Functional Status Start: 05/25/19 17:47 Freq: NEEDED Status: Active Protocol: Document 05/25/19 17:47 (Rec: 05/25/19 18:02 [id number]) Medical Review Prior Functional Status Medical History Reviewed Yes Diet/Fluid Consistency Regular Communication no deficits noted. able to make needs known Mobility and Gait Pt was independent for all mobility Activities of Daily Living and IADL's independent for all ADLs and IADLs Prior Functional Level (Other details) Two EMGs indicated CTS in right but not in left. Symptoms noted in L arm. Numbness and tingling point middle and ring finger of L hand. Social History Household Members spouse Living Arrangements RV Number of Floors (Floors) One Floor Number of Stairs To Enter/Railing? 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 Pt had a fusion surgery on his back in 2014 who has been using log roll for OOB M2 PT-IP Current Condition Start: 05/25/19 17:47 Freq: NEEDED Status: Active Protocol: Document 05/25/19 17:47 (Rec: 05/25/19 18:02 [id number]) Physical Therapy Current Condition Current Condition Evaluation Date 05/25/19 Treatment Diagnosis C5-C7 ACDF, ongoing radicular symptoms in L hand Onset Date 05/25/19 Precautions Cervical Spine Precautions Soft Collar for Comfort,No Heavy Lifting,Log Roll Weight Bearing Status Weight Bearing Status Full Weight Bearing M3 PT-IP Subjective Start: 05/25/19 17:47 Freq: NEEDED Status: Active Protocol: Document 05/25/19 17:47 HH (Rec: 05/25/19 18:02 [id number]) Subjective Physical Therapy Visit Type Type Initial Evaluation Visit Start Time 17:10 Visit Stop Time 17:35 Total Visit Minutes 25 Notes Per RN, Pt is not groggy anymore and just finished dinner. Number of JUDGE CLERK Visits 0 Physical Therapy Visit Comments Patient Comments Im more awake now and wanting to move. Patient Goals To return home with his . Therapy Pain Assessment Pain Present Pain Present Denied Pain M4 PT-IP Mobility and Gait Start: 05/25/19 17:47 Freq: NEEDED Status: Active Protocol: Document 05/25/19 17:47 (Rec: 05/25/19 18:02 [id number]) PT-Bed Mobility Assessment Rolling Type of Rolling Roll to Left Level of Assist Standby Assistance Supine to Sit Supine to Sit Standby Assistance Scooting Scooting to Edge of Bed Standby Assistance PT-Transfer Assessment Sit to and From Stand Sit to and from Stand Standby Assistance,Use of Upper Extremities Equipment Transfer Assistive Device None,Gait Belt Orthotic/Prosthetic Devices or Brace: No Transfers Transfer Destination Bed,Chair Transfer Technique Stand Step Pivot Transfer Ability Level of Assist Standby Assistance,Use of Upper Extremities Comments Mobility Comments Pt was in elevated HOB upon PT arrival. Denies any discomfort and was able to swallow for his food. Pt agreeable to mobilize with PT. He completed log roll to L followed by sidelying push up to sit SBA with bed rail who stated he has similar feature at home. Pt then scooted to EOB and proceeded to stand up without AD. He then amb to sink counter for collar fitting. Pt then amb with PT to nursing station who was able to hold on to IV pole and navigate SBA. Pt appeared to be very steady and no signs of LOB. He then returned to bedside chair safely with proper hand placements. Call light placed within reach. Gait Assessment Gait Gait Assistance Required: Standby Assistance Distance (Feet) 220 Able to Maintain Weight Bearing Status Yes During Gait Assistive Devices Assistive Device None,Gait Belt Orthotic/Prosthetic Devices or Brace: No Gait Deviations General Gait Pattern Within Normal Limits Factors Limiting Gait Function Factors Limiting Gait Function Decreased Activity Tolerance Comments Gait Comments see mobility comments. Stair Climbing Assessment Evaluation Level of Assist On Stairs Standby Assistance Devices Stair Climbing Assistive Devices Left Railing Technique/Endurance Stair Climbing Direction Ascend and Descend Stair Climbing Technique Step Over Step,Step to Step Number of Steps Climbed 3 Query Text: Stair Climbing Set # Repetitions (reps) 2 Comments Stair Climbing Comments step over pattern for descend and step to for descend. Appeared safe and steady. PT-Balance Assessment Sitting Balance and Reactions Static Sitting Balance Ability Normal Dynamic Sitting Balance Ability Normal Standing Balance and Reactions Static Standing Balance Ability Normal Dynamic Standing Balance Ability Normal M5 PT-IP Objective Assessments Start: 05/25/19 17:47 Freq: NEEDED Status: Active Protocol: Document 05/25/19 17:47 (Rec: 05/25/19 18:02 [id number]) Orientation Orientation/Cognition Level of Alertness Alert Orientation Name,Age,Birthday,Month,Date, Year,Day of Week,Place, Situation Language Function Ability No Deficits Noted Safety Awareness Understands Safety Issues Memory Description No Deficits Noted Gross Range of Motion Upper Extremity ROM Assessment Within Functional Limits Lower Extremity ROM Assessment Within Functional Limits Strength Upper Extremity Strength Assessment Within Functional Limits Lower Extremity Strength Assessment Within Functional Limits Coordination Assessment Gross Coordination Gross Coordination WNL Sensation Assessment Sensation Gross Sensation Left UE Impaired Light Touch Impaired Proprioception (Position) Impaired Sensation Description Numbness Comments Sensation Comments Pt reports numbness from 2nd to 4th digit but denied tingling sensation. Muscle Tone Muscle Tone WNL Yes M6 PT-IP Treatment Start: 05/25/19 17:47 Freq: NEEDED Status: Active Protocol: Document 05/25/19 17:47 (Rec: 05/25/19 18:02 [id number]) Physical Therapy Treatment Education Education Provided Precautions,Post-Op Packet, Safety Brace Education Donning,Painter,Patient M7 PT-IP Assessment and Plan Start: 05/25/19 17:47 Freq: NEEDED Status: Active Protocol: Document 05/25/19 17:47 (Rec: 05/25/19 18:02 [id number]) PT Summary Assessment and Plan Potential Rehabilitation Potential Excellent Status of Condition at Evaluation Stable Summary Impairments Pain,Sensation,Activity Tolerance Progress Towards Goals Safe For Discharge Assessment Summary This is a low complexity evaluation for this 48 yo male s/p POD #0 C5-C7 ACDF. 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 But pt does has ongoing numbness, tingling sensation for his 2-4th digits. CLOF= Pt cont to have numbness at his 2-4 th digits but no numbness reported. He was able to mobilize with this PT without AD and no signs of LOB/ c/o discomfort. Pt also completed stair climbing with L rail SBA . He is currently safely to go home with 's assistance as needed. Frequency of Treatment Frequency Of Treatment Discharge Recommendations To Nursing Amount of Assist Needed Standby Assistance Discharge Recommendations PT Discharge Recommendations Home with Assistance Transportation Needs at Discharge Private Vehicle
--- NOTE | 2019-05-25 18:50 | PC.NURSE ---
Kylie shift note: Patient awake, alert, and pleasant. Up out of bed with PT, ambulated in hallway independently. Soft cervical collar in place, educated regarding precautions, verbalized understanding. SCDs in place while in bed, IS while awake. Calls appropriately for staff assistance. On RA, 95%. Voiding, QS
[2019-05-25] MEDS: OXYCODONE IR 10 MG TABLET PO (20:11)
[2019-05-25] MEDS: DOCUSATE 100 MG CAPSULE PO (20:11)
[2019-05-25] MEDS: SENNOSIDES 8.6 MG TABLET 17.2 MG PO (20:11)
[2019-05-25] MEDS: LORazepam 1 MG TABLET PO (20:11)
--- NOTE | 2019-05-25 23:39 | PC.NURSE ---
Addendum entered by Nilda Willingham R.N. 05/26/19 02:38: Complains of 8/10 incisional pain; medicated with Oxycodone and ice pack applied. Original Note: Patient is alert and oriented. Breath sounds CTA with RA sat of 93%. Wearing soft cervical collar. Dressing to anterior neck is intact with shadow drainage at upper edge. States sore throat/sore to swallow but no choking. Pain is 4/10 but tolerable and declines pain meds and/or ice pack. Has chronic numbness in fingers of left hand and pain in forearm; overall weakness in left UE. Denies nausea. BT hypoactive and has not yet passed flatus. Voiding per urinal; denies dysuria, frequency or urgency. Up independently walking zelaya and is steady on feet. Fall risk score is low. Calf SCD's placed as per MD order.
[2019-05-26] MEDS: CEFAZOLIN 2 GM/100 ML FROZ.PIGGY IV (00:46)
[2019-05-26] MEDS: OXYCODONE IR 10 MG TABLET PO ×2 (02:37→08:15)
[2019-05-26 04:41] VITALS: BP 113/60; PULSE 79; RESP 16; TEMP 37.1; O2SAT 94
[2019-05-26 05:58] LABS: Hematocrit 34.1 % (41-53); Hemoglobin 11.7 g/dL (13.5-17.5)
[2019-05-26 07:35] VITALS: BP 106/67; PULSE 83; RESP 15; TEMP 37.4; O2SAT 94
--- NOTE | 2019-05-26 07:50 | PC.NURSE ---
Addendum entered by Michaelle Gayle R.N. 05/26/19 12:57: Discharge education given to patient, patient verbalizes understanding of s/s of infection and stroke, given instructions on wound care, follow up appointment and pain management. Patient discharged via wheelchair. Original Note: Patient resting in bed this AM. A/Ox4. Soft neck collar on, neck dsg is CDI, patient confirms numbness in LUE, tingling and pain still in left forearm. Pulses equal bilaterally. Lung sounds clear, bowel tones are active x4. Abdomen is soft and non-tender. Calf SCD's on bilaterally, removed for patient's independent walk in the zelaya. Patient denies dizziness, lightheadedness, increased SOB or WOB during activity.
[2019-05-26] MEDS: DOCUSATE 100 MG CAPSULE PO (08:09)
[2019-05-26] MEDS: ESCITALOPRAM 10 MG TABLET 15 MG PO (08:09)
[2019-05-26] MEDS: lisinopriL 20 MG TABLET 40 MG PO (08:12)
[2019-05-26] MEDS: GABAPENTIN 300 MG CAPSULE PO (08:12)
[2019-05-26] MEDS: LORATADINE 10 MG TABLET PO (08:13)
--- NOTE | 2019-05-26 08:48 | OT.IP.TRT ---
Current Diagnoses Other spondylosis with radiculopathy, cervical region (05/25/19) Spinal stenosis, cervical region (05/25/19) Surgery Performed Operation Date: 05/25/19 08:45 Actual Procedures p C5-6, C6-7 ACDF w/ anterior instrumentation(Not Applicable) - Franco Baez MD Occupational Therapy Treatment Note M3 OT- IP Subjective and Pain Start: 05/26/19 08:41 Freq: Status: Active Protocol: Document 05/26/19 08:42 [facility] (Rec: 05/26/19 08:48 [facility] [id number]) OT- Subjective Occupational Therapy Visit Type Type Treatment Note Visit Start Time 08:34 Visit Stop Time 08:42 Total Visit Minutes 8 Occupational Therapy Visit Comments Patient Comments Pt just finishing eating breakfast and willing to do OT eval. Patient/Caregiver Goals To go home today. OT Pain Assessment Pain When Pain Assessed At Rest Pain Present Pain Present Denied Pain M4 OT- IP ADL's Start: 05/26/19 08:41 Freq: Status: Active Protocol: Document 05/26/19 08:42 [facility] (Rec: 05/26/19 08:48 [facility] [id number]) OT [id number] General Evaluation Self-Feeding Ability Independent Comments OT Self-Feeding Comments Educated on informational sheet on swallowing after cervical sx, to eat softer food, cold foods, eat upright, and make sure to chew food up thoroughly before swallowing. OT ADL-Oral Care Comments Oral Care Comments Educated to spit into a cup or bend at his hips and lean forwards to the sink to spit. OT ADL-Dressing Comments OT Dressing Comments Educated to be mindful of cervical precautions when dressing. OT ADL-Bathing Comments OT Bathing Comments Educated to use showerhead to shower below his neck. Pt wanting to shower at home. M9 OT- IP Assessment and Plan Start: 05/26/19 08:41 Freq: Status: Active Protocol: Document 05/26/19 08:42 [facility] (Rec: 05/26/19 08:48 [facility] [id number]) OT Summary Assessment and Plan Potential Rehabilitation Potential Excellent Analytic Complexity at Evaluation Low Summary Progress Towards Goals Progressing Toward Goals Assessment Summary Pt low complexity and independently moving in the room and has been educated by OT for cervical precautions for ADl needs. Pt to go home today and has supportive to assist with needs. Goals Patient/Caregiver Education Goal Demonstrate Energy Conservation and Pacing, Caregiver Independent Assisting Patient Days to Meet Goals 1 Frequency of Treatment Frequency Of Treatment Once a Day Treatment Plan OT Treatment Plan Patient/Family Education, Discharge Planning Discharge Recommendations OT Discharge Recommendations Home with Assistance Transportation Needs at Discharge Private Vehicle
--- NOTE | 2019-05-26 11:02 | P.DS_ITS ---
History of Present Illness History of Present Illness Date Patient Seen: 05/26/19 Time Patient Seen: 11:02 Chief complaint: Cervical Fusion Anterior *OPB* Narrative: Patient was admitted yesterday for scheduled ACDF Discharge Providers Provider Discharge Date: 05/26/19 Primary care physician: Teresita Winslow MD Consults: 05/25/19 14:00 Consult to Occupational Therapy Evaluate & Treat Comment: Physician Instructions: Evaluate and treat Consult to Physical Therapy Evaluate & Treat Comment: Physician Instructions: Evaluate and Treat Discharge provider: Jhonatan Davies MD Summary Hospital Course Discharge Diagnosis: s/p ACDF Hospital Course: Patient underwent ACDF yesterday and this was well tolerated. Pain is controlled and patient is swallowing without difficulty Status at Discharge Cognitive/behavioral status at discharge: oriented Functional status at discharge: independent ambulation Overall status at discharge: patient is progressing back to baseline Time Spent with Patient Time spent discussing smoking cessation with patient: more than 10 minutes Exam Vital Signs (past 8 hours): - 05/26/19 04:41 05/26/19 07:35 Temperature 98.7 F 99.4 F Pulse Rate 79 83 Respiratory Rate 16 15 Blood Pressure 113/60 106/67 Pulse Oximetry 94 94 Oxygen Delivery Method Room Air Oxygen Flow Rate 0 Objective Labs Result Diagrams: 05/26/19 05:45 Labs: Laboratory Results - last 24 hr 05/26/19 05:45 Hgb 11.7 L Hct 34.1 L Discharge Plan Discharge Plan Patient Disposition: Home Discharge Med Rec/Prescriptions Prescriptions: New docusate sodium [DOK] 100 mg Capsule 100 mg PO BID Qty: 28 RF: 0 hydroxyzine pamoate 25 mg Capsule 25 mg PO Q4HR PRN (Reason: Nausea And Vomiting) Qty: 42 RF: 0 ondansetron HCl (PF) 4 mg/2 mL Solution 4 mg IV Q6HR PRN (Reason: Nausea And Vomiting) Qty: 12 RF: 0 oxycodone 10 mg Tablet 10 mg PO Q3HR PRN (Reason: Pain, Severe (7-10)) Qty: 48 RF: 0 Continued fexofenadine [Radha Allergy] 180 mg tablet 180 mg PO DAILY RF: 0 lorazepam 1 mg tablet 1 mg PO BEDTIME RF: 0 lisinopril 40 mg tablet 40 mg PO DAILY RF: 0 fluticasone propionate [Flonase Allergy Relief] 50 mcg/actuation spray, suspension 2 spray NASAL DAILY RF: 0 atorvastatin 10 mg Tablet 10 mg PO QPM RF: 0 amlodipine 10 mg Tablet 10 mg PO QPM RF: 0 gabapentin 300 mg Capsule 300 mg PO TID RF: 0 escitalopram oxalate [Lexapro] 10 mg Tablet 15 mg PO DAILY RF: 0 Follow up/Referrals: Franco Baez MD [Physician] - 2 Weeks Discharge Orders: Discharge (Order); Ordered 05/26/19 Ordered By: Jhonatan Davies Provider Discharge Instructions Diet: Diet as Tolerated Cold/Heat Therapy: Ice as needed to control swelling Skin/Wound/Dressing Care Report to your healthcare provider any signs of infection, such as:: chills, fever, night sweats and increased pain Dressing: OK to remove dressing in 5 days Visit Report/Discharge Packet Instructions: DI for Anterior Cervical Discectomy and Fusion Stand Alone Forms: Surgery Discharge Print Language: Turkmen Discharge Data Primary Care Provider: Teresita Winslow Attending Provider: Franco Baez Quality VTE Deep Vein Thrombosis/Pulmonary Embolism Present on Admission: No
--- NOTE | 2019-05-26 11:24 | CM.DANOTE ---
DCP Assessment: EMR reviewed: Patient is a 48 yr old male who was admitted for Cervical fusion surgery preformed by Dr. Baez. CM/RN met with patient at the bedside and explain role. Patient was alert and oriented x3 at time of visit. Patient currently lives in an RN with his Tawana. Patient was walking around room during visit unassisted and stated his pain is well under control. Patient is independent with all ADL's and drives [place]. PT and OT evaluation stated patient is good to go home with assistance. Patients will be picking up patient and bringing him home when he is medically stable. I: [place] and self pay Plan: D/C home with family when medically stable. No identified D/c planning needs are noted. CM department will follow to assist with any new D/C planning needs as they arise. Eladia Pereyra RN Discharge Planning/Care Management CM Discharge Assessment Start: 05/26/19 11:23 Freq: Status: Active Protocol: Document 05/26/19 11:23 HS (Rec: 05/26/19 11:24 [id number]) Discharge Planning Assessment Assigned Referral Management Liaison Eladia Pereyra RN DPOA/Assigned Designee Name Tawana Sharpe () Contact Information [phone] Advance Directives? No History Provided By Patient,Medical Record Has Patient been admitted in last 30 No days? Prior Living Arrangements RV Household Members spouse Type of transporation used prior to Drives own vehicle admit Independent with ADL's Yes Is patient alert and oriented? Yes Caregiver for Another No Barriers to Discharge No Discharge Plan Home Referrals Initiated None needed Whiteboard Updated in Patient Room with Yes name and ext. 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 Required No Height 175.26 cm Weight 95.254 kg Body Mass Index (BMI) 31.0 Hearing Ability Normal Visual Impairment No Limitations Visual Assist None Dentition Type Teeth, Natural Present Barriers to Learning None Hx Anesthesia Reactions Yes: Hard time waking up Hx Family Anesthesia Reaction No Hx Malignant Hyperthermia No Hx Blood Transfusions No Anesthesia Review Requested No alcohol intake current alcohol intake frequency holidays/special occasions only Smoking Status Never smoker Substance Use Type does not use Pain Present Pain Reported Musculoskeletal Symptoms Abnormal Gait,Back Pain, Difficulty Walking,Limited Range of Motion,Neck Pain, Numbness,Radiating Pain into Limb,Tingling History of Falling (Recent or History of No ) Patient is completely paralyzed or No completely immobile Mental Status Oriented to own ability Is patient on oxygen? No Does patient have LEVI/SOB No Hx Sleep Apnea No Currently Taking a Beta Vish No Can You Climb a Flight of Stairs Without Yes SOB Hx Chest Pain No Hx SOB No Hx Syncope or Dizziness No Anti-Coagulant Therapy No Has a Computer Software Engineer No Cardiac Testing No Hx Pacemaker/ICD No Pacemaker Rep Required? No Cardiac Clearance Received Not Applicable Diet Type At Home Regular dysphagia No Urinary Catheter Present No Hx Urinary Self Catheterization No Diabetes No Hx Drug Resistant Organism No Presence of External or Internal Medical Yes: Rt hand, lumbar hardware, Devices right knee screw Burger exposure No Have you had any close contact with No someone diagnosed with NOVEL CORONAVIRUS ? Have you traveled outside the [facility] in the last 30 days? Marital Status Lives With spouse Prior Living Arrangements RV Support System Family,Friend(s),Spouse Does the Patient Have Assistance After Yes Surgery Patient Discharge Plan Description Return Home Comment Pt advised overnight length of stay per surgeon Feels Safe in Current Environment Yes Been Physically Hurt or Threatened By a No Person in Current Environment Do you have thoughts of harming yourself None or others? Are you currently considering suicide? No Do you have a plan to hurt yourself or No Plan others? Do You Have Any Spiritual Beliefs That No May Affect Your HC Choices? Do You Have Any Cultural Practices That No May Affect Your HC Choices? Comment Nondenominational Who Can We Speak to About Patient's Care Family, friends Identifying Code for Release of Patient Decllines to issue Information Health Care Proxy/Next of Kin Tawana () Health Care Proxy Emergency Contact Name Tawana () Emergency Contact Advance Directives? No Power of Refractory Worker No PAC Instructions Do not shave/clip surgical site,Durable medical equipment ,Medications to take/avoid, Nasal antibiotic,No ETOH/ petroleum product on skin DOS, NPO,Pre-surgical wash,Sturdy shoes/comfortable clothes,Do not bring valuables and remove jewelry
--- NOTE | 2019-05-26 11:36 | PM.PN.1 ---
Exam Vital Signs (past 8 hours): - 05/26/19 04:41 05/26/19 07:35 Temperature 98.7 F 99.4 F Pulse Rate 79 83 Respiratory Rate 16 15 Blood Pressure 113/60 106/67 Pulse Oximetry 94 94 Oxygen Delivery Method Room Air Oxygen Flow Rate 0 Objective Labs Result Diagrams: 05/26/19 05:45 Labs: Laboratory Results - last 24 hr 05/26/19 05:45 Hgb 11.7 L Hct 34.1 L Assessment & Plan Assessment & Plan narrative: Patient doing well POD#1 s/p ACDF/ On exam, dressing clean and dry Neuro intact on exam. Cleared by PT to d/c home D/c home today Quality VTE Deep Vein Thrombosis/Pulmonary Embolism Present on Admission: No
== END 2019-05-26 12:45 | disposition home or self-care (01) ==
LOC: OR 07:16 → AC 07:18
PROVIDERS: PCP Family Medicine; Referring Provider Orthopaedic Surgery Orthopaedic Surgery of the Spine; Visit Provider Orthopaedic Surgery Orthopaedic Surgery of the Spine
PROC: (CPT 22551; principal; 2019-05-25 08:45)
DX: M48.02 Spinal stenosis, cervical region (principal); M47.22 Other spondylosis with radiculopathy, cervical region; F41.9 Anxiety disorder, unspecified; J45.909 Unspecified asthma, uncomplicated; E78.5 Hyperlipidemia, unspecified
CPT/HCPCS: 22551; 22552; 22853 ×2; 36415; 72040; 76000; 85014; 85018; 97161; 97530; 97535; C1776; J0330; J0461; J0690; J1100; J1170; J2060; J2250; J2405; J2704; J3010; J3410

== ENCOUNTER → 2020-03-12 08:57 | Outpatient (CLI) | payer OTHER, SELFPAY ==
[2019-05-25 07:39] VITALS: BMI 31.0
--- NOTE | 2020-03-12 | DI.RAD.S_ITS ---
PROCEDURE: XR KNEE RT 3V INDICATIONS: RIGHT KNEE PAIN TECHNIQUE: 3 views of the knee were acquired. COMPARISON: [facility], , XR KNEE RT 3V, 11/24/2017, 17:25. FINDINGS: Bones: No acute fractures or dislocations. No suspicious bony lesions. Postsurgical changes are again seen from prior anterior cruciate ligament reconstruction. Soft tissues: No joint effusion. No suspicious soft tissue calcifications. IMPRESSION: No acute osseous abnormality. Postsurgical changes from prior anterior cruciate ligament reconstruction. If the symptoms persist with conservative management, consider cross sectional imaging such as CT or MRI for further assessment. Dictated by: Lazaro Smith M.D. on 03/12/2020 at 9:23 Approved by: Lazaro Smith M.D. on 03/12/2020 at 9:26
== END ==
PROVIDERS: PCP Internal Medicine; Referring Provider Internal Medicine; Visit Provider Internal Medicine
DX: M25.561 Pain in right knee (principal)
CPT/HCPCS: 73562

== ENCOUNTER → 2020-04-02 12:17 | Outpatient (CLI) | payer OTHER, SELFPAY ==
[2019-05-25 07:39] VITALS: BMI 31.0
--- NOTE | 2020-04-02 12:19 | DI.MRI.S_ITS ---
PROCEDURE: MR KNEE RT W CON INDICATIONS: Internal derangement of right knee TECHNIQUE: After the administration of 50 mL of dilute intra-articular Gadolinium contrast, sagittal T1 spin echo with fat saturation and PD fast spin echo with fat saturation, coronal T1 spin echo with and without fat saturation, coronal T2 fast spin echo with fat saturation, axial PD fast spin echo with fat saturation through the knee. COMPARISON: [facility], MR, MR KNEE RIGHT WITHOUT CONTRAST, 12/04/2017, 12:51. FINDINGS: Image quality: Suboptimal secondary to postsurgical sequela hardware artifact. Menisci: Ill-defined fraying of the free margin of the posterior horn for example image 22/7 which could be related to prior surgical change versus ill-defined tear. There is irregularity of the undersurface of the posterior horn image 21/7. Intrasubstance linear gadolinium signal intensity involving the undersurface of the body of the lateral meniscus is present, suspicious for recurrent tear, as well as a blunting of the free margin which could be related to prior surgery Cruciate ligaments: Postsurgical sequela related to ACL reconstruction. The graft appears grossly intact. Posterior cruciate ligament appears intact. Medial structures: The medial collateral ligament appears intact. Semimembranosus tendon appears intact. Visualized portions of the pes anserinus tendons appear normal. No abnormal bursal fluid. Lateral structures: The lateral collateral ligament demonstrates thickening and intrasubstance signal change in keeping with low grade sprain, statistically chronic, although technically age indeterminate. Biceps femoris tendon appears intact. Popliteus tendon grossly unremarkable. Iliotibial band appears intact. Anterior structures: Quadriceps tendon intact. Medial and lateral patellofemoral ligaments intact. Patellar tendon appears intact, with postsurgical change. Hoffa's fat pad unremarkable. Bones and cartilage: No focal marrow contusion or discrete low signal fracture line. Within the medial compartment, no focal cartilage defect. Within the lateral compartment, diffuse partial-thickness loss of the femoral cartilage without focal defect. Within the patellofemoral compartment, diffuse surface fraying and partial thickness fissuring of the cartilage overlying the median patellar ridge and lateral patellar facet. This appears slightly more conspicuous. Femoral trochlear cartilage appears grossly intact. Joint space: No Anders's cyst. No specific evidence of intra-articular loose body. IMPRESSION: Postsurgical changes related to ACL reconstruction, with intact appearance of the graft. Undersurface signal irregularity and gadolinium infiltration of the lateral meniscal body suggestive of small recurrent tear although recommend clinical correlation to exclude postoperative appearance. This appears more conspicuous since the prior study from 12/04/17. Additionally, blunting of the free margin of the body is present (unchanged). Ill-defined fraying of the free margin of the posterior horn of the medial meniscus, which could reflect prior postoperative sequela versus subtle undersurface tear as above. The appearance is grossly unchanged since the prior study. Patellofemoral chondromalacia, slightly progressed. Dictated by: Craig Rhodes M.D. on 04/02/2020 at 15:18 Approved by: Craig Rhodes M.D. on 04/02/2020 at 15:30
--- NOTE | 2020-04-02 12:20 | DI.RAD.S_ITS ---
PROCEDURE: FL KNEE INJECTION MR/CT RT INDICATIONS: Internal derangement of right knee COMPARISON: None. TECHNIQUE: The indications, alternatives, benefits, risks, and complications of the procedure were explained to the patient. Written informed consent was obtained and placed in the chart. The knee was examined fluoroscopically, and a site chosen for knee joint injection. The skin was prepped and draped in a sterile fashion, and 1% Lidocaine infiltrated from the skin down to the articular surface. A hypodermic needle was then introduced into the joint and iodinated contrast media was instilled to confirm the intra-articular needle tip placement. This was followed by approximately 50 mL dilute solution of a gadolinium containing MR contrast agent. The needle was removed and a bandage was applied. An Emre wrap was then applied around the knee joint to keep the contrast from collecting in the suprapatellar recess. The patient experienced no complications throughout the procedure and left the fluoroscopic suite in no apparent distress. FINDINGS: Single fluoroscopic spot image demonstrates intra-articular location to injected iodinated contrast. IMPRESSION: Successful fluoroscopically guided administration of dilute Gadolinium solution into the knee joint for MR arthrogram. Dictated by: Craig Rhodes M.D. on 04/02/2020 at 13:32 Approved by: Craig Rhodes M.D. on 04/02/2020 at 13:32
== END ==
PROVIDERS: PCP Internal Medicine; Referring Provider Orthopaedic Surgery; Visit Provider Orthopaedic Surgery
DX: M23.91 Unspecified internal derangement of right knee (principal); M22.41 Chondromalacia patellae, right knee
CPT/HCPCS: 27369; 73722; 77002

== ENCOUNTER → 2020-07-17 18:33 | Outpatient (CLI) | payer OTHER, SELFPAY ==
[2019-05-25 07:39] VITALS: BMI 31.0
[2020-07-17 19:25] LABS: COVID19 -Nasal RAPID Negative (Negative)
== END ==
PROVIDERS: PCP Internal Medicine; Visit Provider Physician Assistant
DX: J02.9 Acute pharyngitis, unspecified (principal)
CPT/HCPCS: 87070; 87635

== ENCOUNTER 2021-02-04 14:56 | Emergency (ER) | payer OTHER, SELFPAY ==
[2021-02-04 15:25] VITALS: BP 142/85; PULSE 83; RESP 18; TEMP 37; O2SAT 95; BMI 30.2
[2021-02-04 15:55] LABS: Add Manual Diff / Slide Review NO; Basophils Absolute Auto 100 /uL (0-100); Basophils Percent Auto 0.7 % (0-2); Eosinophils Absolute Auto 100 /uL (0-450); Eosinophils Percent Auto 0.6 % (2-4); Hematocrit 41.5 % (41-53); Hemoglobin 14.3 g/dL (13.5-17.5); Lymphocytes Absolute Auto 1400 /uL (1100-4500); Lymphocytes Percent Auto 12.3 % (25-40); Mean Corpuscular HGB Conc 34.5 % (30-36); Monocytes Absolute Auto 600 /uL (0-900); Monocytes Percent Auto 5.4 % (3-14); Neutrophils Absolute Auto 9200 /uL (1500-7000); Platelet Count 194 X10^3/uL (150-400); Red Blood Cell Count 4.94 X10^6/uL (4.5-5.9); White Blood Cell Count 11.4 X10^3/uL (4.5-11.0)
[2021-02-04 16:09] LABS: Alanine Aminotransferase 25 IU/L (<50); Albumin 5.1 g/dL (3.5-5.0); Albumin Globulin Ratio 1.7 (1.0-2.8); Alkaline Phosphatase 67 U/L (38-126); Aspartate Aminotransferase 38 IU/L (17-59); BUN Creatinine Ratio 13.5 (6-22); Bilirubin Total 0.5 mg/dL (0.2-1.3); Blood Urea Nitrogen 10 mg/dL (9-20); Calcium 9.6 mg/dL (8.4-10.2); Carbon Dioxide 30 mmol/L (22-32); Chloride 102 mmol/L (98-107); Estimated Glomerular Filt Rate > 60.0 mL/min (>60); Glucose 123 mg/dL (70-100); HEMOLYSIS < 15 (0-50); Lipase 79 U/L (23-300); Potassium 3.8 mmol/L (3.4-5.1); Sodium 142 mmol/L (137-145); Total Protein 8.1 g/dL (6.3-8.2)
--- NOTE | 2021-02-04 16:25 | DI.CT.S_ITS ---
PROCEDURE: CT ABDOMEN PELVIS W CON INDICATIONS: llq abd pain TECHNIQUE: After the administration of intravenous contrast, axial sections acquired from the lung bases to the pubic symphysis. Coronal and sagittal reformats were performed. For radiation dose reduction, the following was used: automated exposure control, adjustment of mA and/or kV according to patient size. COMPARISON: None. FINDINGS: Image quality: Excellent. Lung bases: 1 centimeter solid nodule noted in the base of the right lung (series 3, image 12). Heart: No significant findings. ABDOMEN: Liver: Mild, diffuse fatty infiltration. Gallbladder: Unremarkable. Biliary ducts: Unremarkable. Pancreas: Unremarkable. Spleen: Unremarkable. Adrenal Glands: Unremarkable. Kidneys and Ureters: Unremarkable. Stomach and Bowel: Stomach, small bowel loops, and colon are unremarkable. Scattered diverticuli noted in the sigmoid and left colon. There are mild inflammatory changes adjacent to the proximal sigmoid colon in the region of diverticuli compatible with diverticulitis. No Mariangel diverticular abscess. Appendix is absent. Peritoneum: Small amount of free fluid noted in the lower pelvis. No free air. Ventral Wall: No hernias. Abdominal Nodes: No retroperitoneal or mesenteric adenopathy by size criteria. Vessels: Aorta and inferior vena cava are normal in size. PELVIS: Pelvic Organs: Unremarkable. Bladder: Unremarkable. Pelvic Nodes: No enlarged lymph nodes. Miscellaneous: No hernias are seen. Bones: Probable bone island noted in the left femoral neck. Spine degenerative disc disease and facet arthropathy. Postsurgical changes compatible with L5-S1 fusion and L5 laminectomy. IMPRESSION: 1. Proximal sigmoid colon diverticulitis. 2. No abscess. 3. Mild hepatic steatosis. 4. Small amount of free fluid in the lower pelvis. No free intraperitoneal air. 5. 1.0 centimeter right lower lobe solid nodule. Recommend follow-up CT scan in 3 months or PET-CT imaging based on criteria outlined below. Fleischner Society criteria for SOLID lung nodule followup. Nodule size (mm)Low-risk patientHigh-risk patient<6 (single or multiple)No routine followup.Optional CT at 12 months. 6-8 (single or multiple)CT at 6-12 months, then optional CT at 18-24 mo.CT at 6-12 months, then CT at 18-24 months. >8 (single)CT at 3 months, PET-CT, or biopsy. Same as for low-risk pts. >8 (multiple)CT at 3-6 months, then optional CT at 18-24 mo.CT at 3-6 months, then CT at 18-24 months. Recommendations do not apply to lung cancer screening, patients with immunosuppression, or patients with known primary cancer. Dictated by: Crista Cosby MD, PhD on 02/04/2021 at 16:37 Approved by: Crista Cosby MD, PhD on 02/04/2021 at 16:47
[2021-02-04] MEDS: SODIUM CHLORIDE 0.9% 1,000 ML 1000 ML IV (17:15)
--- NOTE | 2021-02-04 17:30 | ED_ITS ---
HPI - Abdominal Pain General Chief Complaint: Abdominal Pain Stated Complaint: ABB PAINS Time Seen by Provider: 02/04/21 17:01 Source: patient Mode of arrival: Ambulatory Limitations: no limitations History of Present Illness HPI narrative: Patient here with . Complains of left lower quadrant abdominal pain with watery diarrhea. Nonradiating. Started this morning. It woke him up. Denies any abdominal pain or problems over the weekend. Last colonoscopy more than 10 years ago. No recent illness. No urinary complaints. No cough cold congestion fever chills. Related Data Home Medications Medication Instructions Recorded Confirmed amlodipine 10 mg tablet 10 mg PO DAILY 09/11/19 09/11/19 atorvastatin 10 mg tablet 10 mg PO DAILY 09/11/19 09/11/19 escitalopram oxalate 10 mg tablet 15 mg PO DAILY tab 09/11/19 09/11/19 fexofenadine 180 mg tablet 180 mg PO DAILY 09/11/19 09/11/19 (Radha Allergy) fluticasone furoate 50 INHALATION 09/11/19 09/11/19 mcg/actuation blister powder for inhalation lisinopril 40 mg tablet 40 mg PO DAILY 09/11/19 09/11/19 lorazepam 0.5 mg tablet 0.5 mg PO DAILY PRN 09/11/19 09/11/19 Previous Rx's Medication Instructions Recorded hydrocodone 5 mg-acetaminophen 325 1 tab PO Q6H PRN #20 tab 02/04/21 mg tablet hydrocodone 5 mg-acetaminophen 325 1 tab PO Q6H PRN #7 tab 02/04/21 mg tablet levofloxacin 500 mg tablet 500 mg PO DAILY #7 tab 02/04/21 levofloxacin 500 mg tablet 500 mg PO DAILY #7 tab 02/04/21 metoclopramide HCl 10 mg tablet 10 mg PO Q6H PRN #20 tab 02/04/21 metoclopramide HCl 10 mg tablet 10 mg PO Q6H PRN #20 tab 02/04/21 metronidazole 500 mg tablet 500 mg PO TID #21 tab 02/04/21 Allergies Allergy/AdvReac Type Severity Reaction Status Date / Time No Known Drug Allergies Allergy Unverified 09/11/19 15:37 Review of Systems Review of Systems Narrative: GENERAL: Denies chills, fatigue, malaise, fever, sweats. HEENT: Denies sinus pain, ear pain, sore throat RESPIRATORY: Denies dyspnea, cough CARDIOVASCULAR: Denies chest pain, palpitations GASTROINTESTINAL: Denies nausea, vomiting, positive abdominal pain : Denies dysuria, frequency, hematuria MUSCULOSKELETAL: denies muscle or bony pain SKIN: Denies rash, skin lesions NEUROLOGIC: Denies weakness, numbness ROS Unobtainable: All systems reviewed & are unremarkable except as noted in HPI and below Patient History Social History Smoking Status: Never smoker Smoking Status: Never smoker Substance Use Type: does not use Exam Narrative Exam Narrative: GENERAL: in no distress, not toxic not dyspneic HEAD: Normocephalic. . CARDIOVASCULAR: Regular rate and rhythm without murmurs RESPIRATORY: Clear to auscultation. Breath sounds equal bilaterally. No wheezes, rales, or rhonchi. GASTROINTESTINAL: Abdomen soft, there is reproducible left lower quadrant tenderness. No peritoneal signs, bowel sounds present. BACK: No flank tenderness. NEURO: AOx4. SKIN: Warm and dry PSYCH: Not anxious, is cooperative Initial Vital Signs Initial Vital Signs: Vital Signs Temperature 98.6 F 02/04/21 15:25 Pulse Rate 83 02/04/21 15:25 Respiratory Rate 18 02/04/21 15:25 Blood Pressure 142/85 H 02/04/21 15:25 Pulse Oximetry 95 02/04/21 15:25 Course Course Course Narrative: No new issues during course of stay Orders Ordered: Discontinued Medications Sodium Chloride (Normal Saline 0.9%) 1,000 mls @ 1,000 mls/hr IV BOLUS ONE Stop: 02/04/21 18:01 Last Infusion: 02/04/21 19:02 Dose: 0 mls/hr Documented by: Admin: 02/04/21 17:15 Dose: 1,000 mls/hr Documented by: HAYDENR Levofloxacin (Levofloxacin 250 Mg Tablet) 500 mg PO NOW ONE Stop: 02/04/21 17:29 Last Admin: 02/04/21 17:39 Dose: 500 mg Documented by: [place]TE Metoclopramide HCl (Metoclopramide 10 Mg/2 Ml Inj) 10 mg IV NOW ONE Stop: 02/04/21 17:30 Last Admin: 02/04/21 17:39 Dose: 10 mg Documented by: BTONER Metronidazole (Metronidazole 500 Mg Tablet) 500 mg PO NOW ONE Stop: 02/04/21 17:29 Last Admin: 02/04/21 17:39 Dose: 500 mg Documented by: BTONER Morphine Sulfate (Morphine 4 Mg/Ml Inj) 4 mg IV NOW ONE Stop: 02/04/21 17:28 Last Admin: 02/04/21 17:39 Dose: 4 mg Documented by: BTONER Ondansetron HCl (Ondansetron 4 Mg/2 Ml Inj) 4 mg IV NOW ONE Stop: 02/04/21 17:28 Reevaluation(s) Reevaluation #1: Reviewed results with patient. And . They agree with treatment plan for outpatient pain management/antibiotics and follow-up with gastroenterology for colonoscopy. Time: 17:33 Vital Signs Vital signs: Vital Signs - 8 hr 02/04/21 15:25 Temperature 98.6 F Pulse Rate 83 Respiratory Rate 18 Blood Pressure 142/85 H Pulse Oximetry 95 MDM - Abdominal Pain Differential Diagnosis Differential diagnosis: Likely abdominal pain, acute appendicitis, constipation, diverticulitis, gastroenteritis and small bowel obstruction Lab Data Result diagrams: 02/04/21 15:00 02/04/21 15:00 Labs: Lab Results 02/04/21 02/04/21 Range/Units 15:00 15:00 WBC 11.4 H (4.5-11.0) X10^3/uL RBC 4.94 (4.5-5.9) X10^6/uL Hgb 14.3 (13.5-17.5) g/dL Hct 41.5 (41-53) % MCV 84.0 (80-100) fL MCH 29.0 (26-34) PG MCHC 34.5 (30-36) % RDW 13.0 (11.6-14.8) % Plt Count 194 (150-400) X10^3/uL Neut % (Auto) 81.0 H (50-75) % Lymph % (Auto) 12.3 L (25-40) % [place] % (Auto) 5.4 (3-14) % Eos % (Auto) 0.6 L (2-4) % Baso % (Auto) 0.7 (0-2) % Neut # (Auto) 9200 H (6767-0968) /uL Lymph # (Auto) 1400 (9203-8427) /uL [place] # (Auto) 600 (0-900) /uL Eos # (Auto) 100 (0-450) /uL Baso # (Auto) 100 (0-100) /uL Sodium 142 (137-145) mmol/L Potassium 3.8 (3.4-5.1) mmol/L Chloride 102 (98-107) mmol/L Carbon Dioxide 30 (22-32) mmol/L BUN 10 (9-20) mg/dL Creatinine 0.74 (0.66-1.25) mg/dL Estimated GFR > 60.0 (>60) mL/min BUN/Creatinine Ratio 13.5 (6-22) Glucose 123 H (70-100) mg/dL Calcium 9.6 (8.4-10.2) mg/dL Total Bilirubin 0.5 (0.2-1.3) mg/dL AST 38 (17-59) IU/L ALT 25 (<50) IU/L Alkaline Phosphatase 67 (38-126) U/L Total Protein 8.1 (6.3-8.2) g/dL Albumin 5.1 H (3.5-5.0) g/dL Globulin 3.0 (1.7-4.1) g/dL Albumin/Globulin Ratio 1.7 (1.0-2.8) Lipase 79 (23-300) U/L Point of care testing: Urine Dip Bedside Urine Glucose Negative Bedside Urine Bilirubin - Negative Bedside Urine Ketone - Negative Urine Specific [place] 1.015 Bedside Urine Occult Blood - Negative Bedside Urine pH 6.0 Bedside Urine Protein - Negative Bedside Urine Urobilinogen - Negative Bedside Urine Nitrite - Negative Bedside Urine Leukocytes - Negative Esterase Imaging Data CT scan - abdomen/pelvis: Radiologist's Impression: [address] [address] [address] Scan Report Signed Patient: Olegario Sharpe MR#: [id number] : 1970 Acct:[id number] Age/Sex: 50 / M Date of Service: 02/04/21 Loc: ED Accession Number: [id number] ?? Procedure: CT abdomen pelvis w con Ordering Provider: Nic Juarez MD PROCEDURE:? CT ABDOMEN PELVIS W CON ? INDICATIONS:? llq abd pain ? TECHNIQUE:? After the administration of intravenous contrast, axial sections acquired from the lung bases to the pubic symphysis.? Coronal and sagittal reformats were performed.? For radiation dose reduction, the following was used:? automated exposure control, adjustment of mA and/or kV according to patient size.? ? COMPARISON:? None. ? FINDINGS:? Image quality:? Excellent.? ? Lung bases:? 1 centimeter solid nodule noted in the base of the right lung (series 3, image 12). Heart:? No significant findings. ? ABDOMEN: Liver:? Mild, diffuse fatty infiltration. Gallbladder:? Unremarkable.? ? Biliary ducts:? Unremarkable.? ? Pancreas:? Unremarkable.? ? Spleen:? Unremarkable.? ? Adrenal Glands:? Unremarkable.? ? Kidneys and Ureters:? Unremarkable.? ? ? Stomach and Bowel:? Stomach, small bowel loops, and colon are unremarkable.? Scattered diverticuli noted in the sigmoid and left colon.? There are mild inflammatory changes adjacent to the proximal sigmoid colon in the region of diverticuli compatible with diverticulitis.? No Mariangel diverticular abscess.? Appendix is absent.? Peritoneum:? Small amount of free fluid noted in the lower pelvis.? No free air.? ? Ventral Wall: ? No hernias.? Abdominal Nodes:? No retroperitoneal or mesenteric adenopathy by size criteria.? Vessels:? Aorta and inferior vena cava are normal in size.? ? PELVIS: Pelvic Organs:? Unremarkable.? ? Bladder:? Unremarkable.? ? Pelvic Nodes: No enlarged lymph nodes.? Miscellaneous: No hernias are seen. ? ? ? Bones:? Probable bone island noted in the left femoral neck.? Spine degenerative disc disease and facet arthropathy.? Postsurgical changes compatible with L5-S1 fusion and L5 laminectomy. ? ? IMPRESSION:? ? 1. Proximal sigmoid colon diverticulitis. ? 2. No abscess. ? 3. Mild hepatic steatosis. ? 4. Small amount of free fluid in the lower pelvis.? No free intraperitoneal air. ? 5. 1.0 centimeter right lower lobe solid nodule.? Recommend follow-up CT scan in 3 months or PET-CT imaging based on criteria outlined below. ? ? Fleischner Society criteria for SOLID lung nodule followup.? Nodule size (mm)Low-risk patientHigh-risk patient<6 (single or multiple)No routine followup.Optional CT at 12 months. 6-8 (single or multiple)CT at 6-12 months, then optional CT at 18-24 mo.CT at 6-12 months, then CT at 18-24 months.? >8 (single)CT at 3 months, PET-CT, or biopsy. Same as for low-risk pts.? >8 (multiple)CT at 3-6 months, then optional CT at 18-24 mo.CT at 3-6 months, then CT at 18-24 months.? Rec ommendations do not apply to lung cancer screening, patients with immunosuppression, or patients with known primary cancer. ? Dictated by: Crista Cosby MD, PhD on 02/04/2021 at 16:37 ? ? Approved by: Crista Cosby MD, PhD on 02/04/2021 at 16:47 ? MDM Narrative Medical decision making narrative: Appropriate for discharge home. Patient not toxic. Not septic. White cell count slightly elevated. Exam and imaging and laboratory studies otherwise reassuring. Return precautions reviewed with patient. They do these are outpatient management of diverticulitis. Discharge Plan Departure Patient Disposition: Home Clinical Impression: Diverticulitis Instructions: DI for Diverticulitis Activity Restrictions/Additional Instructions: No driving today or operating machinery or when taking prescribed medications. Call Dr. Ball office tomorrow for office appointment for recheck and to schedule colonoscopy. Keep well hydrated. Return if worse if any questions or concerns. Do not consume or take any alcohol products while on these prescribed medications. Prescriptions: New hydrocodone-acetaminophen 5-325 mg tablet 1 tab PO Q6H PRN (Reason: pain) Qty: 7 0RF levofloxacin 500 mg tablet 500 mg PO DAILY Qty: 7 0RF metoclopramide HCl 10 mg tablet 10 mg PO Q6H PRN (Reason: nausea and vomiting) Qty: 20 0RF hydrocodone-acetaminophen 5-325 mg tablet 1 tab PO Q6H PRN (Reason: pain) Qty: 20 0RF levofloxacin 500 mg tablet 500 mg PO DAILY Qty: 7 0RF metoclopramide HCl 10 mg tablet 10 mg PO Q6H PRN (Reason: nausea and vomiting) Qty: 20 0RF metronidazole 500 mg tablet 500 mg PO TID Qty: 21 0RF No Action fluticasone furoate 50 mcg/actuation blister with device INHALATION 0RF lisinopril 40 mg tablet 40 mg PO DAILY 0RF amlodipine 10 mg tablet 10 mg PO DAILY 0RF lorazepam 0.5 mg tablet 0.5 mg PO DAILY PRN0RF atorvastatin 10 mg tablet 10 mg PO DAILY 0RF fexofenadine [Radha Allergy] 180 mg tablet 180 mg PO DAILY 0RF escitalopram oxalate 10 mg tablet 15 mg PO DAILY 0RF Referrals: Umang Ball MD [Physician] -
[2021-02-04] MEDS: METOCLOPRAMIDE 10 MG/2 ML INJ IV (17:39)
[2021-02-04] MEDS: levoFLOXacin 250 MG TABLET 500 MG PO (17:39)
[2021-02-04] MEDS: metroNIDAZOLE 500 MG TABLET PO (17:39)
[2021-02-04] MEDS: MORPHINE 4 MG/ML INJ IV (17:39)
[2021-02-04 19:07] VITALS: BP 132/74; PULSE 80; RESP 18; O2SAT 100
== END 2021-02-04 18:30 | disposition home or self-care (01) ==
PROVIDERS: Emergency Provider Emergency Medicine
DX: K57.32 Diverticulitis of large intestine without perforation or abscess without bleeding (principal)
CPT/HCPCS: 36415; 74177; 80053; 81003; 83690; 85025; 96361; 96374; 96375; 99284; J2270; J2765; Q9967

== ENCOUNTER 2021-02-08 19:17 | Emergency (ER) | payer OTHER, SELFPAY ==
[2019-05-25 07:39] VITALS: BMI 31.0
[2021-02-08 19:25] VITALS: BP 139/84; PULSE 68; RESP 18; TEMP 36.7; O2SAT 99; BMI 29.5
--- NOTE | 2021-02-08 21:27 | PC.NURSE ---
Lower back pain with sharp, shooting pain started yesterday. No specific injury.
--- NOTE | 2021-02-08 22:06 | ED.BACK ---
HPI - Back Pain/Injury General Chief Complaint: Back Pain/Injury Stated Complaint: Lower Back Pain. Radiating Down Both Legs Time Seen by Provider: 02/08/21 21:35 Source: patient Limitations: no limitations History of Present Illness HPI Narrative: 50-year-old male nonsmoker with history of hypertension, hyperlipidemia and prior back injuries requiring surgery presents with his in the chief complaint of severe lower back pain with radiation down both legs. He denies any numbness or tingling. He denies any trouble controlling bowel or bladder. He denies any lower extremity weakness. He denies any specific injury or memorable moment but states the pain started over the past few days. He was recently seen and evaluated here for diverticulitis and placed on antibiotics. He states that the pain associated with his diverticulitis is greatly improved. He states that he has been under tremendous stress at home lately and has been feeling unwell and therefore not very active. He has no fever or chills and takes no blood thinners. His pain is worse when he moves and improves with rest. Related Data Home Medications Medication Instructions Recorded Confirmed amlodipine 10 mg tablet 10 mg PO QPM 03/25/18 02/04/21 atorvastatin 10 mg tablet 10 mg PO QPM 03/25/18 02/04/21 fexofenadine 180 mg tablet 180 mg PO DAILY 05/24/18 02/04/21 (Radha Allergy) fluticasone propionate 50 2 spray NASAL DAILY 05/24/18 02/04/21 mcg/actuation nasal spray,suspension (Flonase Allergy Relief) lisinopril 40 mg tablet 40 mg PO DAILY 05/24/18 02/04/21 escitalopram oxalate 10 mg tablet 15 mg PO DAILY 05/19/19 02/04/21 (Lexapro) amlodipine 10 mg tablet 10 mg PO DAILY 09/11/19 09/11/19 atorvastatin 10 mg tablet 10 mg PO DAILY 09/11/19 09/11/19 escitalopram oxalate 10 mg tablet 15 mg PO DAILY tab 09/11/19 09/11/19 fexofenadine 180 mg tablet 180 mg PO DAILY 09/11/19 09/11/19 (Radha Allergy) fluticasone furoate 50 INHALATION 09/11/19 09/11/19 mcg/actuation blister powder for inhalation lisinopril 40 mg tablet 40 mg PO DAILY 09/11/19 09/11/19 lorazepam 0.5 mg tablet 0.5 mg PO DAILY PRN 09/11/19 09/11/19 trazodone 50 mg tablet mg PO 07/17/20 02/04/21 Previous Rx's Medication Instructions Recorded docusate sodium 100 mg capsule 100 mg PO BID #28 cap 05/26/19 (DOK) hydrocodone 5 mg-acetaminophen 325 1 tab PO Q6H PRN #20 tab 02/04/21 mg tablet hydrocodone 5 mg-acetaminophen 325 1 tab PO Q6H PRN #7 tab 02/04/21 mg tablet levofloxacin 500 mg tablet 500 mg PO DAILY #7 tab 02/04/21 levofloxacin 500 mg tablet 500 mg PO DAILY #7 tab 02/04/21 metoclopramide HCl 10 mg tablet 10 mg PO Q6H PRN #20 tab 02/04/21 metoclopramide HCl 10 mg tablet 10 mg PO Q6H PRN #20 tab 02/04/21 metronidazole 500 mg tablet 500 mg PO TID #21 tab 02/04/21 cyclobenzaprine 10 mg tablet 10 mg PO TID PRN #14 tab 02/08/21 gabapentin 300 mg capsule 300 mg PO BEDTIME #14 cap 02/08/21 ketorolac 10 mg tablet 10 mg PO Q6H PRN #14 tab 02/08/21 Allergies Allergy/AdvReac Type Severity Reaction Status Date / Time No Known Drug Allergies Allergy Verified 02/05/21 13:50 steroidal medications AdvReac Intermediate Agitated Uncoded 02/05/21 13:50 Review of Systems Review of Systems Narrative: GENERAL: Denies chills, fatigue, malaise, fever, sweats. HEENT: Denies sinus pain, ear pain, sore throat, difficulty swallowing, dizziness. RESPIRATORY: Denies dyspnea, cough, wheezing, hemoptysis, sputum. CARDIOVASCULAR: Denies chest pain, palpitations, orthopnea, edema, GASTROINTESTINAL: Denies nausea, vomiting, abdominal pain, diarrhea, constipation, melena. : Denies dysuria, frequency, incontinence, hematuria, urinary retention. MUSCULOSKELETAL see HPI SKIN: Denies rash, skin lesions, or other NEUROLOGIC: Denies weakness, headache, numbness, change in speech, confusion, seizures, incoordination. PSYCHIATRIC: No concerning psychosocial issues. 12 point review of systems is negative except for those stated above Patient History Medical History Anxiety Arthritis Asthma Depression Hand fracture, right (1989) HLD (hyperlipidemia) HTN (hypertension) Numbness and tingling Pharyngitis Seasonal allergies Surgical History History of carpal tunnel release of both wrists History of lumbar fusion (2014) History of vasectomy Hx of appendectomy (1989) Hx of arthroscopy of right knee Hx of repair of left rotator cuff (2005) Status post Mohs surgery Social History household members: spouse Smoking Status: Never smoker alcohol intake: current Smoking Status: Never smoker alcohol intake frequency: holidays/special occasions only Substance Use Type: does not use Exam Narrative Exam Narrative: GENERAL: [50 year old patient appears stated age. Well-developed patient, in mild distress. Obviously uncomfortable HEAD: Atraumatic. Normocephalic. EYES: Pupils equal round and reactive. Extraocular motions intact. No scleral icterus. No injection or drainage. ENT: Nose without bleeding, purulent drainage. Throat without erythema, tonsillar hypertrophy or exudate. Airway patent. NECK: Trachea midline. Non tender CARDIOVASCULAR: Regular rate and rhythm without murmurs, gallops, or rubs. RESPIRATORY: Clear to auscultation. Breath sounds equal bilaterally. No wheezes, rales, or rhonchi. GASTROINTESTINAL: Abdomen soft, non-tender, nondistended. EXTREMITIES: No edema or joint tenderness. BACK: blow molding machine tender but free of any obvious external abnormalities. Patient exam notes decreased range of motion and muscle spasm, but no CVA tenderness, or vertebral point tenderness. There are no symptoms of cauda equina such as saddle anesthesia, and decreased reflexes, decreased sensation or strength. NEURO: AOx3. SKIN: No rash or erythema of visible areas Initial Vital Signs Initial Vital Signs: Vital Signs Temperature 98.1 F 02/08/21 19:25 Pulse Rate 68 02/08/21 19:25 Respiratory Rate 18 02/08/21 19:25 Blood Pressure 139/84 02/08/21 19:25 Pulse Oximetry 99 02/08/21 19:25 Course Orders Ordered: Discontinued Medications Cyclobenzaprine HCl (Cyclobenzaprine 10 Mg Prepack) 1 bottle MISC SEEINSTR ONE Stop: 02/08/21 22:30 Last Admin: 02/08/21 22:37 Dose: 1 bottle Documented by: DEBRA Gabapentin (Gabapentin 300 Mg Capsule) 300 mg PO NOW ONE Stop: 02/08/21 22:30 Last Admin: 02/08/21 22:37 Dose: 300 mg Documented by: DEBRA Hydromorphone HCl (Hydromorphone 1 Mg Inj) 1 mg IV NOW ONE Stop: 02/08/21 22:30 Last Admin: 02/08/21 22:38 Dose: 1 mg Documented by: DEBRA Ketorolac Tromethamine (Ketorolac 30 Mg/Ml Vial) 30 mg IM NOW ONE Stop: 02/08/21 22:30 Last Admin: 02/08/21 22:37 Dose: 30 mg Documented by: DEBRA Reevaluation(s) Reevaluation #1: Significant improvement after above-stated therapies, patient requesting discharge Vital Signs Vital signs: Vital Signs - 8 hr 02/08/21 23:12 Pulse Rate 67 Respiratory Rate 20 Blood Pressure 123/77 Pulse Oximetry 96 MDM - Back Pain/Injury MDM Narrative Medical decision making narrative: Multiple etiologies of back pain considered including; Epidural abscess, cauda equina, mass occupying lesion, and other considered, however no red flag symptoms to suggest a neurosurgical emergency are present. He has a palpable and reproducible whole pain in his lumbar region lateral to the spine in the paraspinal musculature. Patient had significant improvement after above-stated therapies. Extensive return precautions given and questions answered to his apparent satisfaction Discharge Plan Departure Patient Disposition: Home Clinical Impression: Strain of lumbar region Instructions: DI for Back Pain With Sciatica Activity Restrictions/Additional Instructions: *You have been diagnosed with [lumbar pain with sciatica.] *What to do: *Please continue to take your regular medications as directed. [x ] New medication prescriptions sent to your pharmacy: [[facility] ] [ ] New medication written as a paper prescription [ ] No new medications given *Please follow up with your primary care provider in 2-3 days, call for an appointment. Let them know you were seen in the Emergency Department and that we ask that you be seen in follow up. We will electronically transmit a record of today's note if your PCP is in our system *If you do not have a primary care provider please contact the [facility] Resource line at [phone]. They will ask some questions about your medical history and help get you set up with a doctor in the community. *Return to Emergency Department if you should have any new, worsening or concerning symptoms, such as [fever greater than 101 F, shaking chills, worsening pain, persistent vomiting or other bothersome symptoms] You have been prescribed a short course of narcotic medications. These are potentially dangerous and addictive medications that should be used carefully. While on these medications you cannot drive or operate heavy machinery. Additionally, you cannot sign legal documents or perform any duties such as this. Many people get constipated on narcotic medications so it would be advisable to discuss stool softeners with the pharmacist when you citrus picker your prescription. Please understand that we cannot provide further refills of narcotics or controlled substances through the ED and your pain management will need to be through your Primary Care Provider Prescriptions: New cyclobenzaprine 10 mg tablet 10 mg PO TID PRN (Reason: muscle spasm) Qty: 14 0RF ketorolac 10 mg tablet 10 mg PO Q6H PRN (Reason: pain) Qty: 14 0RF gabapentin 300 mg capsule 300 mg PO BEDTIME Qty: 14 0RF No Action fexofenadine [Radha Allergy] 180 mg tablet 180 mg PO DAILY 0RF lisinopril 40 mg tablet 40 mg PO DAILY 0RF Rx Instructions: Takes at bedtime fluticasone propionate [Flonase Allergy Relief] 50 mcg/actuation spray,suspension 2 spray NASAL DAILY 0RF fluticasone furoate 50 mcg/actuation blister with device INHALATION 0RF lisinopril 40 mg tablet 40 mg PO DAILY 0RF amlodipine 10 mg tablet 10 mg PO DAILY 0RF lorazepam 0.5 mg tablet 0.5 mg PO DAILY PRN0RF atorvastatin 10 mg tablet 10 mg PO DAILY 0RF fexofenadine [Radha Allergy] 180 mg tablet 180 mg PO DAILY 0RF escitalopram oxalate 10 mg tablet 15 mg PO DAILY 0RF trazodone 50 mg tablet PO 0RF hydrocodone-acetaminophen 5-325 mg tablet 1 tab PO Q6H PRN (Reason: pain) Qty: 7 0RF levofloxacin 500 mg tablet 500 mg PO DAILY Qty: 7 0RF metoclopramide HCl 10 mg tablet 10 mg PO Q6H PRN (Reason: nausea and vomiting) Qty: 20 0RF hydrocodone-acetaminophen 5-325 mg tablet 1 tab PO Q6H PRN (Reason: pain) Qty: 20 0RF levofloxacin 500 mg tablet 500 mg PO DAILY Qty: 7 0RF metoclopramide HCl 10 mg tablet 10 mg PO Q6H PRN (Reason: nausea and vomiting) Qty: 20 0RF metronidazole 500 mg tablet 500 mg PO TID Qty: 21 0RF atorvastatin 10 mg Tablet 10 mg PO QPM 0RF amlodipine 10 mg Tablet 10 mg PO QPM 0RF escitalopram oxalate [Lexapro] 10 mg Tablet 15 mg PO DAILY 0RF docusate sodium [DOK] 100 mg Capsule 100 mg PO BID Qty: 28 0RF Referrals: Kasey Blackburn ARNP [Primary Care Provider] -
[2021-02-08] MEDS: KETOROLAC 30 MG/ML VIAL IM (22:37)
[2021-02-08] MEDS: CYCLOBENZAPRINE 10 MG PREPACK 1 BOTTLE MISC (22:37)
[2021-02-08] MEDS: GABAPENTIN 300 MG CAPSULE PO (22:37)
[2021-02-08] MEDS: HYDROMORPHONE 1 MG INJ IV (22:38)
[2021-02-08 23:12] VITALS: BP 123/77; PULSE 67; RESP 20; O2SAT 96
== END 2021-02-08 23:56 | disposition home or self-care (01) ==
PROVIDERS: Emergency Provider Emergency Medicine; PCP Internal Medicine
DX: S39.012A Strain of muscle, fascia and tendon of lower back, initial encounter (principal); X58.XXXA Exposure to other specified factors, initial encounter
CPT/HCPCS: 96372; 99283; J1170; J1885

== ENCOUNTER → 2021-02-19 15:40 | Outpatient (CLI) | payer OTHER, SELFPAY ==
[2019-05-25 07:39] VITALS: BMI 31.0
--- NOTE | 2021-02-19 15:48 | DI.RAD.S_ITS ---
PROCEDURE: XR HUMERUS RT 2V INDICATIONS: RT UPPER ARM PAIN TECHNIQUE: 3 views of the humerus were acquired. COMPARISON: None. FINDINGS: Bones: No fractures or dislocations. No suspicious bony lesions. Soft tissues: No suspicious soft tissue calcifications. IMPRESSION: Normal right humerus Dictated by: Eduardo Mc M.D. on 02/19/2021 at 16:25 Approved by: Eduardo Mc M.D. on 02/19/2021 at 16:26
== END ==
PROVIDERS: PCP Internal Medicine; Referring Provider Internal Medicine; Visit Provider Internal Medicine
DX: M79.621 Pain in right upper arm (principal)
CPT/HCPCS: 73060

== ENCOUNTER 2021-04-11 08:06 | Outpatient (CLI) | payer OTHER, SELFPAY ==
[2019-05-25 07:39] VITALS: BMI 31.0
== END 2021-04-16 08:12 | disposition home or self-care (01) ==
LOC: PHYS 08:06
PROVIDERS: Family Provider Internal Medicine; PCP Internal Medicine; Referring Provider Internal Medicine; Visit Provider Internal Medicine
DX: S34.4XXA Injury of lumbosacral plexus, initial encounter (principal)
CPT/HCPCS: 95886; 95910